=== PATIENT | female | born 2000 | race Caucasian/White ===

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

== ENCOUNTER 2021-01-05 20:47 | Emergency (ER) | payer MEDICAID ==
[2021-01-05] MEDS ORDERED: ONDANSETRON 4 MG/2 ML VIAL IVP STA (21:19)
[2021-01-05] MEDS ORDERED: SODIUM CHLORIDE 0.9% 1,000 ML IV STA (21:19)
[2021-01-05 21:35] VITALS: RESP 18
--- NOTE | 2021-01-05 22:06 | ED ---
General Adult HPI - General Chief complaint: Upper Respiratory Infection Stated complaint: NVD,Fever Time Seen by Provider: 01/05/21 21:16 Source: patient Mode of arrival: ambulatory Limitations: no limitations - History of Present Illness Initial comments: Patient is a 20-year-old female presenting to the emergency department for cold- like symptoms that started this morning. Patient states she was exposed to a family member, she was tested 3 days ago and was negative. Patient states this morning when she woke up she started having a headache, body aches, nausea and vomiting. She has been unable to keep any Tylenol down. She developed low- grade temperature as well. She denies any chest pain or shortness of breath. She denies being although she states there is a chance. She denies any abdominal pain, no diarrhea. She has no further complaints at this time. Upon arrival to the ER, her vitals are stable. - Related Data Previous Rx's Medication Instructions Recorded Ondansetron Odt [Zofran Odt] 4 mg PO Q8HR PRN #10 tab 01/05/21 Allergies Allergy/AdvReac Type Severity Reaction Status Date / Time Penicillins Allergy Rash/Hives Verified 01/05/21 21:47 Review of Systems ROS Statement: Those systems with pertinent positive or pertinent negative responses have been documented in the HPI. ROS Other: All systems not noted in ROS Statement are negative. Past Medical History Past Medical History: No Reported History Additional Past Medical History / Comment(s): autoimmune dermatomyocytis - in remission History of Any Multi-Drug Resistant Organisms: None Reported Past Surgical History: No Surgical Hx Reported Past Psychological History: Anxiety, Bipolar, Depression, Schizoaffective Disorder Smoking Status: Current every day smoker Past Alcohol Use History: None Reported Past Drug Use History: Marijuana General Exam - General Exam Comments Initial Comments: GENERAL: Patient is well-developed and well-nourished. Patient is nontoxic and in no acute distress. HEAD: Atraumatic, normocephalic. EYES: Pupils equal round and reactive to light, extraocular movements intact, sclera anicteric, conjunctiva are normal. Eyelids were unremarkable. ENT: TMs normal, nares patent, oropharynx clear without exudates. Moist mucous mem branes. NECK: Normal range of motion, supple without lymphadenopathy or JVD. LUNGS: Unlabored respirations. Breath sounds clear to auscultation bilaterally and equal. No wheezes rales or rhonchi. HEART: Regular rate and rhythm without murmurs, rubs or gallops. ABDOMEN: Soft, nontender, normoactive bowel sounds. No guarding, no rebound. No masses appreciated. : Deferred MUSCULOSKELETAL: Normal extremities with adequate strength and normal range of motion, no pitting or edema. No clubbing or cyanosis. NEUROLOGICAL: Patient is alert and oriented x 3. Motor and sensory are also intact. Cranial nerves II through XII grossly intact. Symmetrical smile. Normal speech, normal gait. PSYCH: Normal mood, normal affect. SKIN: Warm, Dry, normal turgor, no rashes or lesions noted. Limitations: no limitations Course Vital Signs 01/05/21 01/05/21 20:54 21:32 Temperature 97.9 F Pulse Rate 100 Respiratory 20 18 Rate Blood Pressure 128/90 O2 Sat by Pulse 98 Oximetry Medical Decision Making - Medical Decision Making Patient is a healthy 20-year-old female here for covid like symptoms that started this morning. She states she was exposed about 5 days ago, she had a test 3 days ago which was negative. Her vital signs are stable, her exam was unremarkable. We did check patient for , this was negative. Her rapid covid test is positive. Patient was given some fluids and Zofran and reports improvement in her symptoms. Recommended alternating between Tylenol and Motrin for her symptoms, I will send her home with some Zofran for any additional nausea. Patient is stable for discharge. Patient is in agreement with this plan of care. Return parameters were discussed with the patient and they verbalized understanding. Case discussed with Dr. Pastor. - Lab Data Lab Results 01/05/21 01/05/21 Range/Units 21:26 21:26 Urine HCG, Qual Not Detected (Not Detectd) Coronavirus (PCR) Detected A (Not Detectd) Disposition Clinical Impression: COVID-19, Nausea & vomiting Disposition: HOME SELF-CARE Condition: Stable Instructions (If sedation given, give patient instructions): Coronavirus Disease 2019 (COVID-19) Additional Instructions: Please return to the Emergency Department if symptoms worsen or any other concerns. Alternate between Tylenol and ibuprofen for fever and body aches. May take Zofran for additional nausea. Follow-up with your primary care physician as needed. Prescriptions: Ondansetron Odt [Zofran Odt] 4 mg PO Q8HR PRN #10 tab PRN Reason: Nausea Is patient prescribed a controlled substance at d/c from ED?: No Referrals: Lynette Rivera MD [Primary Care Provider] - 1-2 days Time of Disposition: 22:06
[2021-01-05] MEDS ORDERED: SODIUM CHLORIDE 0.9% 50 ML IVPB ONE (23:00)
[2021-01-05] MEDS ORDERED: BAMLANIVIMAB (EUA) 700 MG, ETESEVIMAB (EUA) 1,400 MG in SODIUM CHLORIDE 0.9% 50 ML IVPB ONE (23:00)
[2021-01-06 01:16] VITALS: BP 103/58; PULSE 73; TEMP 99
== END 2021-01-06 01:15 | disposition home or self-care (01) ==
LOC: EC 20:47
DX: U07.1 COVID-19 (principal); F25.9 Schizoaffective disorder, unspecified; F32.9 Major depressive disorder, single episode, unspecified; F41.9 Anxiety disorder, unspecified; F17.200 Nicotine dependence, unspecified, uncomplicated; F12.90 Cannabis use, unspecified, uncomplicated; Z88.0 Allergy status to penicillin
CPT/HCPCS: 81025; 87635; 99284; 96374; 96361; J2405; Q0245

== ENCOUNTER 2021-05-22 13:06 | Emergency (ER) | payer MEDICAID ==
[2021-05-22 13:19] VITALS: RESP 18; TEMP 98.3
[2021-05-22] MEDS ORDERED: KETOROLAC 15 MG/ML 1 ML VIAL IVP STA (13:54)
--- NOTE | 2021-05-22 13:57 | ED ---
Chest Pain HPI - General Chief Complaint: Chest Pain Stated Complaint: chest Pain Time Seen by Provider: 05/22/21 13:31 Source: patient Mode of arrival: ambulatory Limitations: no limitations - History of Present Illness Initial Comments: Patient is a 21-year-old female who presents to the emergency department reported chest pain, cough and sore throat. She reports that her symptoms have been present for the past day. She denies any sick contacts with similar symptoms. Does have a history of Covid back in January. She is vaccinated. She denies previous history of cardiac disease. No history of sudden cardiac in family members. No lower extremity swelling. No history of DVT or PE. No numbness, tingling or weakness in her extremity. Denies a productive cough. Does have concern for . No other alleviating, precipitating or modifying factors - Related Data Previous Rx's Medication Instructions Recorded Ondansetron Odt [Zofran Odt] 4 mg PO Q8HR PRN #10 tab 01/05/21 Albuterol Inhaler [Ventolin Hfa 2 puff INHALATION RT-QID #1 unit 05/22/21 Inhaler] Allergies Allergy/AdvReac Type Severity Reaction Status Date / Time Penicillins Allergy Rash/Hives Verified 05/22/21 14:52 Review of Systems ROS Statement: Those systems with pertinent positive or pertinent negative responses have been documented in the HPI. ROS Other: All systems not noted in ROS Statement are negative. EKG Findings - EKG Comments: EKG Findings:: EKG demonstrates a sinus rhythm with a ventricular rate of 82. MA interval 130. QRS 26. QTC of 41. No acute ST segment elevations or depressions concerning for ischemic changes Past Medical History Past Medical History: No Reported History Additional Past Medical History / Comment(s): autoimmune dermatomyocytis - in remission History of Any Multi-Drug Resistant Organisms: None Reported Past Surgical History: No Surgical Hx Reported Past Psychological History: Anxiety, Bipolar, Depression, Schizoaffective Disorder Smoking Status: Current every day smoker Past Alcohol Use History: None Reported Past Drug Use History: Marijuana General Exam Limitations: no limitations General appearance: alert, in no apparent distress Head exam: Present: atraumatic, normocephalic, normal inspection Eye exam: Present: normal appearance, PERRL, EOMI. Absent: scleral icterus, conjunctival injection, periorbital swelling ENT exam: Present: normal exam, mucous membranes moist Neck exam: Present: normal inspection. Absent: tenderness, meningismus, lymphadenopathy Respiratory exam: Present: normal lung sounds bilaterally. Absent: respiratory distress, wheezes, rales, rhonchi, stridor Cardiovascular Exam: Present: regular rate, normal rhythm, normal heart sounds. Absent: systolic murmur, diastolic murmur, rubs, gallop, clicks GI/Abdominal exam: Present: soft, normal bowel sounds. Absent: distended, tenderness, guarding, rebound, rigid Extremities exam: Present: normal inspection, full ROM, normal capillary refill. Absent: tenderness, pedal edema, joint swelling, calf tenderness Back exam: Present: normal inspection Neurological exam: Present: alert, oriented X3, CN II-XII intact Psychiatric exam: Present: normal affect, normal mood Skin exam: Present: warm, dry, intact, normal color. Absent: rash Course Vital Signs 05/22/21 05/22/21 13:17 17:25 Temperature 98.3 F Pulse Rate 97 82 Respiratory 18 18 Rate Blood Pressure 124/86 128/78 O2 Sat by Pulse 96 99 Oximetry Chest Pain MDM - MDM Patient has mild leukocytosis. Covid negative. Chest xray clear. Posterior pharyngitis without exudates or erythema. Patient will be discharged to follow up with PCP. Disposition Clinical Impression: Cough, Pharyngitis Disposition: HOME SELF-CARE Condition: Stable Instructions (If sedation given, give patient instructions): Upper Respiratory Infection (ED) Additional Instructions: Please use the inhaler every 4 hours. Take Motrin/Tylenol for pain/fever. Use Mucinex with the inhaler. Follow up with your doctor in 2-4 days. Return to the ED for any new or worsening symptoms. Prescriptions: Albuterol Inhaler [Ventolin Hfa Inhaler] 2 puff INHALATION RT-QID #1 unit Is patient prescribed a controlled substance at d/c from ED?: No Referrals: Lynette Rivera MD [Primary Care Provider] - 1-2 days Time of Disposition: 16:57
--- NOTE | 2021-05-22 14:08 | XR ---
EXAMINATION TYPE: XR chest 2V DATE OF EXAM: 05/22/2021 COMPARISON: 10/14/2020 HISTORY: Chest pain TECHNIQUE: FINDINGS: Heart and mediastinum are normal. Lungs are clear. Diaphragm is normal. Bony thorax appears normal IMPRESSION: Normal chest. No change.
[2021-05-22 15:11] LABS: Basophils # (A) 0.1 k/uL (0-0.2); Basophils % (A) 0 %; Eosinophils # (A) 0.3 k/uL (0-0.7); Eosinophils % (A) 2 %; HCT 43.9 % (34.0-46.0); HGB 15.4 gm/dL (11.4-16.0); Lymphocytes # (A) 2.5 k/uL (1.0-4.8); Lymphocytes % (A) 16 %; MCH 31.6 pg (25.0-35.0); MCV 90.2 fL (80.0-100.0); Monocytes # (A) 0.6 k/uL (0-1.0); Monocytes % (A) 4 %; Neutrophils # (A) 12.3 k/uL (1.3-7.7); Neutrophils % (A) 77 %; Platelet Count 291 k/uL (150-450); RBC 4.87 m/uL (3.80-5.40); RDW 11.7 % (11.5-15.5)
[2021-05-22 15:22] LABS: ALT 34 U/L (4-34); AST 24 U/L (14-36); African American GFR (CKD) >90 (>60 ml/min/1.73 sqM); Albumin 4.4 g/dL (3.5-5.0); Alkaline Phosphatase 85 U/L (38-126); Anion Gap 9 mmol/L; Blood Urea Nitrogen 13 mg/dL (7-17); Calcium 9.6 mg/dL (8.4-10.2); Carbon Dioxide 21 mmol/L (22-30); Chloride 105 mmol/L (98-107); Glucose 91 mg/dL (74-99); Non-African American GFR(CKD) >90 (>60 ml/min/1.73 sqM); Potassium 4.2 mmol/L (3.5-5.1); Sodium 135 mmol/L (137-145); Total Bilirubin 0.9 mg/dL (0.2-1.3); Total Protein 7.3 g/dL (6.3-8.2)
[2021-05-22 15:24] LABS: INR 0.9 (<1.2); Partial Thromboplastin Time 23.2 sec (22.0-30.0); Prothrombin Time 10.1 sec (9.0-12.0)
[2021-05-22] MEDS ORDERED: DEXAMETHASONE SOD PHOSPHATE 10 MG/ML 1 ML VIAL IV STA (16:49)
[2021-05-22 17:28] VITALS: BP 128/78; PULSE 82
== END 2021-05-22 17:28 | disposition home or self-care (01) ==
LOC: EC 13:06
DX: J02.9 Acute pharyngitis, unspecified (principal); D72.829 Elevated white blood cell count, unspecified; F17.200 Nicotine dependence, unspecified, uncomplicated; Z88.0 Allergy status to penicillin; Z86.16 Personal history of COVID-19; Z20.822 Contact with and (suspected) exposure to COVID-19
CPT/HCPCS: 36415; 93005; 85379; 80053; 83735; 84484; 85025; 85610; 85730; 81025; 87635; 71046; 99285; 96374; 96375; J1100; J1885

== ENCOUNTER 2021-08-24 19:16 | Emergency (ER) | payer BC ==
[2021-08-24] MEDS ORDERED: KETOROLAC 15 MG/ML 1 ML VIAL IM STA (23:05)
[2021-08-24] MEDS ORDERED: ACETAMINOPHEN TAB 500 MG TAB PO STA (23:05)
[2021-08-24] MEDS ORDERED: ONDANSETRON 4 MG ODT STARTER PACK 2 TAB BTL PO STA (23:06)
--- NOTE | 2021-08-24 23:08 | ED ---
URI HPI - General Chief Complaint: Upper Respiratory Infection Stated Complaint: Headache,chest pain Source: patient Mode of arrival: ambulatory Limitations: no limitations - History of Present Illness Initial Comments: 21 year-old female patient presents for evaluation of cough, congestion, body aches, and fever. Symptoms started yesterday. States she did have COVID three weeks ago. Symptoms feel similar. She denies any shortness of breath or chest pain. She did have one episode of vomiting. Denies abdominal pain. States she took ibuprofen earlier in the day. Denies diarrhea. Denies sick contacts. - Related Data Previous Rx's Medication Instructions Recorded Ondansetron Odt [Zofran Odt] 4 mg PO Q8HR PRN #10 tab 01/05/21 Albuterol Inhaler [Ventolin Hfa 2 puff INHALATION RT-QID #1 unit 05/22/21 Inhaler] Ibuprofen [Motrin] 600 mg PO Q8HR PRN #30 tab 08/24/21 Ondansetron [Zofran ODT] 4 mg PO Q8HR PRN #10 tab 08/24/21 Allergies Allergy/AdvReac Type Severity Reaction Status Date / Time Penicillins Allergy Rash/Hives Verified 08/24/21 23:07 Review of Systems ROS Statement: Those systems with pertinent positive or pertinent negative responses have been documented in the HPI. ROS Other: All systems not noted in ROS Statement are negative. Past Medical History Past Medical History: No Reported History Additional Past Medical History / Comment(s): autoimmune dermatomyocytis - in remission, PCOS, COVID JANUARY 2021 History of Any Multi-Drug Resistant Organisms: None Reported Past Surgical History: No Surgical Hx Reported Past Psychological History: Anxiety, Bipolar, Depression, Schizoaffective Disorder Smoking Status: Current every day smoker Past Alcohol Use History: None Reported Past Drug Use History: Marijuana General Exam Limitations: no limitations General appearance: alert, in no apparent distress, other (This is a well- developed, well-nourished adult female in no acute distress.) ENT exam: Present: normal exam, mucous membranes moist, TM's normal bilaterally. Absent: normal oropharynx (Mild pharyngeal erythema) Respiratory exam: Present: normal lung sounds bilaterally. Absent: respiratory distress, wheezes, rales, rhonchi, stridor Cardiovascular Exam: Present: regular rate, normal rhythm, tachycardia, normal heart sounds. Absent: systolic murmur, diastolic murmur, rubs, gallop, clicks GI/Abdominal exam: Present: soft, normal bowel sounds. Absent: distended, tenderness, guarding, rebound, rigid Neurological exam: Present: alert, oriented X3, CN II-XII intact Psychiatric exam: Present: normal affect, normal mood Skin exam: Present: warm, dry, intact, normal color. Absent: rash Course Vital Signs 08/24/21 08/24/21 08/25/21 19:32 22:29 00:00 Temperature 100.5 F H 98.2 F Pulse Rate 118 H 65 Respiratory 20 20 19 Rate Blood Pressure 131/87 124/83 O2 Sat by Pulse 97 96 Oximetry Medical Decision Making - Medical Decision Making 21-year-old female patient presents to the emergency department today for upper respiratory symptoms fever. Physical examination did reveal clear equal lung sounds. She is breathing without difficulty. Abdomen is soft and nontender. She did test negative for COVID-19 influenza. She is given Zofran, Tylenol, and Toradol. She'll be discharged to follow up with her primary care physician for recheck in 1-2 days. Return parameters were discussed in detail. She verbalizes understanding and agrees with this plan. My attending is Dr. Garcia. - Lab Data Lab Results 08/24/21 08/24/21 Range/Units 19:38 19:38 Coronavirus (PCR) Not Detected (Not Detectd) Influenza Type A RNA Not Detected (Not Detectd) Influenza Type B (PCR) Not Detected (Not Detectd) Disposition Clinical Impression: Viral upper respiratory infection Disposition: HOME SELF-CARE Condition: Good Instructions (If sedation given, give patient instructions): Upper Respiratory Infection (ED) Additional Instructions: Tips to help you feel better: -Maintain adequate fluid intake - especially water. -Rest, you are healing your body will require extra sleep. -Eat even if you do not feel like it - broth, jello, toast are fine if you cannot eat full meals. -Take tylenol and motrin alternating (if you have no allergies or have not been instructed to avoid these medications) to help with body aches and fevers. -Obtain over the counter vitamin C, zinc, and vitamin D3. -Take medications as prescribed. Follow-up with your primary care physician for recheck in 1-2 days. Return for any new, worsening, or concerning symptoms. Prescriptions: Ibuprofen [Motrin] 600 mg PO Q8HR PRN #30 tab PRN Reason: Pain Ondansetron [Zofran ODT] 4 mg PO Q8HR PRN #10 tab PRN Reason: Nausea Is patient prescribed a controlled substance at d/c from ED?: No Referrals: Remington Chandra MD [Primary Care Provider] - 1-2 days Time of Disposition: 23:08
[2021-08-25 00:01] VITALS: BP 124/83; PULSE 65; RESP 19; TEMP 98.2
== END 2021-08-24 23:59 | disposition home or self-care (01) ==
LOC: EC 19:16
DX: J06.9 Acute upper respiratory infection, unspecified (principal); F17.200 Nicotine dependence, unspecified, uncomplicated; Z86.16 Personal history of COVID-19; Z20.822 Contact with and (suspected) exposure to COVID-19; Z88.0 Allergy status to penicillin
CPT/HCPCS: 87502; 87635; 96372; 99284; U0003; J1885; S0119

== ENCOUNTER 2021-08-27 09:40 | Emergency (ER) | payer SELFPAY ==
[2021-08-27 09:46] VITALS: TEMP 97.5
--- NOTE | 2021-08-27 09:57 | ED ---
URI HPI - General Chief Complaint: Upper Respiratory Infection Stated Complaint: Covid+/Wants antibodies Time Seen by Provider: 08/27/21 09:46 Source: patient Mode of arrival: ambulatory Limitations: no limitations - History of Present Illness Initial Comments: 21 year-old female patient presents to the emergency department requesting antibody infusion. States she tested positive for COVID on 08/24/21, starting having symptoms on 08/23/21. States she has been having cough, nasal congestion, chest discomfort, fever, body aches, and nausea. States she is not feeling any better. She has been able to hold down food and fluids. States she has been taking zofran and tylenol. She did have COVID in January, had antibodies at that time. - Related Data Previous Rx's Medication Instructions Recorded Ondansetron Odt [Zofran Odt] 4 mg PO Q8HR PRN #10 tab 01/05/21 Albuterol Inhaler [Ventolin Hfa 2 puff INHALATION RT-QID #1 unit 05/22/21 Inhaler] Ibuprofen [Motrin] 600 mg PO Q8HR PRN #30 tab 08/24/21 Ondansetron [Zofran ODT] 4 mg PO Q8HR PRN #10 tab 08/24/21 Allergies Allergy/AdvReac Type Severity Reaction Status Date / Time Penicillins Allergy Rash/Hives Verified 08/27/21 09:46 Review of Systems ROS Statement: Those systems with pertinent positive or pertinent negative responses have been documented in the HPI. ROS Other: All systems not noted in ROS Statement are negative. Past Medical History Past Medical History: No Reported History Additional Past Medical History / Comment(s): autoimmune dermatomyocytis - in remission, PCOS, COVID JANUARY 2021 History of Any Multi-Drug Resistant Organisms: None Reported Past Surgical History: No Surgical Hx Reported Past Psychological History: Anxiety, Bipolar, Depression, Schizoaffective Disorder Smoking Status: Current every day smoker Past Alcohol Use History: None Reported Past Drug Use History: Marijuana General Exam Limitations: no limitations General appearance: alert, in no apparent distress, other (This is a well- developed, well-nourished adult female in no acute distress.) Eye exam: Present: normal appearance, PERRL, EOMI. Absent: scleral icterus, conjunctival injection, periorbital swelling ENT exam: Present: normal exam, normal oropharynx, mucous membranes moist Respiratory exam: Present: normal lung sounds bilaterally. Absent: respiratory distress, wheezes, rales, rhonchi, stridor Cardiovascular Exam: Present: regular rate, normal rhythm, normal heart sounds. Absent: systolic murmur, diastolic murmur, rubs, gallop, clicks GI/Abdominal exam: Present: soft, normal bowel sounds. Absent: distended, tenderness, guarding, rebound, rigid Neurological exam: Present: alert, oriented X3, CN II-XII intact Psychiatric exam: Present: normal affect, normal mood Skin exam: Present: warm, dry, intact, normal color. Absent: rash Course Vital Signs 08/27/21 08/27/21 08/27/21 09:41 10:46 11:04 Temperature 97.5 F L Pulse Rate 78 64 64 Respiratory 16 18 18 Rate Blood Pressure 123/86 91/69 96/68 O2 Sat by Pulse 98 97 98 Oximetry 08/27/21 08/27/21 11:26 13:05 Temperature 97.5 F L Pulse Rate 65 59 L Respiratory 18 18 Rate Blood Pressure 109/81 108/74 O2 Sat by Pulse 98 98 Oximetry Medical Decision Making - Medical Decision Making 21-year-old female patient presenting for monoclonal antibody infusion after testing positive for COVID-19. Physical examination is unremarkable. Lungs are clear to auscultation with good air movement. Vital signs are unremarkable. She did receive antibody infusion and tolerated without difficulty. She'll be discharged follow-up with her primary care physician for recheck in 1-2 days. Return parameters were discussed in detail. She verbalizes understanding and agrees with this plan. My attending is Dr. Sarmiento. Disposition Clinical Impression: COVID-19 Disposition: HOME SELF-CARE Condition: Good Instructions (If sedation given, give patient instructions): Coronavirus Disease 2019 (COVID-19) Additional Instructions: Tips to help you feel better: -Maintain adequate fluid intake - especially water. -Rest, you are healing your body will require extra sleep. -Eat even if you do not feel like it - broth, jello, toast are fine if you cannot eat full meals. -Take tylenol and motrin alternating (if you have no allergies or have not been instructed to avoid these medications) to help with body aches and fevers. -Obtain over the counter vitamin C, zinc, and vitamin D3. -Take medications as prescribed. DO NOT use Afrin spray for more than three days in a row. Follow-up with your primary care physician for recheck in 1-2 days. Return for any new, worsening, or concerning symptoms. Is patient prescribed a controlled substance at d/c from ED?: No Referrals: Remington Chandra MD [Primary Care Provider] - 1-2 days Time of Disposition: 12:15
[2021-08-27] MEDS: SODIUM CHLORIDE 0.9% 1,000 ML IV ONE (10:05)
[2021-08-27] MEDS: KETOROLAC 15 MG/ML 1 ML VIAL IVP STA (10:05)
[2021-08-27] MEDS: ONDANSETRON 4 MG/2 ML VIAL IVP STA (10:05)
[2021-08-27] MEDS: BAMLANIVIMAB (EUA) 700 MG, ETESEVIMAB (EUA) 1,400 MG in SODIUM CHLORIDE 0.9% 100 ML IVPB ONE (10:35)
[2021-08-27 10:47] VITALS: RESP 18
[2021-08-27] MEDS: SODIUM CHLORIDE 0.9% 50 ML IVPB ONE (11:15)
[2021-08-27] MEDS: OXYMETAZOLINE 0.05% NASL SPRAY 1 SPRAY BOTTLE NASAL STA (12:02)
[2021-08-27 13:05] VITALS: BP 108/74; PULSE 59
== END 2021-08-27 12:30 | disposition home or self-care (01) ==
LOC: EC 09:40
DX: U07.1 COVID-19 (principal); F41.9 Anxiety disorder, unspecified; F31.9 Bipolar disorder, unspecified; F25.9 Schizoaffective disorder, unspecified; F17.200 Nicotine dependence, unspecified, uncomplicated; F12.90 Cannabis use, unspecified, uncomplicated
CPT/HCPCS: 99284; 96374; 96375; 96361; J2405; J1885; J3490

== ENCOUNTER 2022-12-26 15:12 | Emergency (ER) | payer OTHER ==
[2022-12-26 15:15] VITALS: TEMP 98.4
--- NOTE | 2022-12-26 16:38 | ED ---
Recheck HPI - General Chief Complaint: Recheck/Abnormal Lab/Rx Stated Complaint: Pelvic Pain Time Seen by Provider: 12/26/22 15:38 Source: patient, RN notes reviewed, old records reviewed Mode of arrival: ambulatory Limitations: no limitations - History of Present Illness Initial Comments: This is a 22-year-old female DF for evaluation she presents today for evaluation of abnormal outpatient testing severe abdominal pain with history of PCO S history of systems history of ruptured cysts. Patient coming in for severe and worse abdominal pain that she's never had before. Patient states she has nausea no active vomiting. Patient has no trauma no vaginal bleeding denies chance of . S MD Complaint: other (abNormal patient ultrasound) Returns Today for: persistent/worsening pain related to initial visit Symptoms Since Prior Visit: worsening pain Associated Symptoms: none Treatments Prior to Arrival: Given Pain Meds on - Related Data Home Medications Medication Instructions Recorded Confirmed Ondansetron Odt [Zofran Odt] 4 mg PO Q8H PRN 12/26/22 12/26/22 Semaglutide [Wegovy] 0.5 mg SQ SA 12/26/22 12/26/22 Allergies Allergy/AdvReac Type Severity Reaction Status Date / Time Penicillins Allergy Rash/Hives Verified 12/26/22 17:46 hydromorphone [From Dilaudid] AdvReac Nausea & Verified 12/26/22 17:46 Vomiting Review of Systems ROS Statement: Those systems with pertinent positive or pertinent negative responses have been documented in the HPI. ROS Other: All systems not noted in ROS Statement are negative. Past Medical History Past Medical History: No Reported History Additional Past Medical History / Comment(s): autoimmune dermatomyocytis - in remission, PCOS, COVID JANUARY 2021 History of Any Multi-Drug Resistant Organisms: None Reported Past Surgical History: No Surgical Hx Reported Past Psychological History: Anxiety, Bipolar, Depression, Schizoaffective Disorder Smoking Status: Current every day smoker Past Alcohol Use History: None Reported Past Drug Use History: Marijuana General Exam Limitations: no limitations General appearance: alert, in no apparent distress, anxious Head exam: Present: atraumatic, normocephalic, normal inspection Eye exam: Present: normal appearance, PERRL, EOMI. Absent: scleral icterus, conjunctival injection, periorbital swelling ENT exam: Present: normal exam, mucous membranes moist Neck exam: Present: normal inspection. Absent: tenderness, meningismus, lymphadenopathy Respiratory exam: Present: normal lung sounds bilaterally. Absent: respiratory distress, wheezes, rales, rhonchi, stridor Cardiovascular Exam: Present: normal rhythm, tachycardia, normal heart sounds. Absent: systolic murmur, diastolic murmur, rubs, gallop, clicks GI/Abdominal exam: Present: soft, tenderness, guarding, normal bowel sounds. Absent: distended, rebound, rigid Extremities exam: Present: normal inspection, full ROM, normal capillary refill. Absent: tenderness, pedal edema, joint swelling, calf tenderness Back exam: Present: normal inspection Neurological exam: Present: alert, oriented X3, CN II-XII intact Psychiatric exam: Present: normal affect, normal mood Skin exam: Present: warm, dry, intact, normal color. Absent: rash Course Vital Signs 12/26/22 12/26/22 15:13 17:50 Temperature 98.4 F Pulse Rate 106 H 97 Respiratory 18 16 Rate Blood Pressure 128/92 136/93 O2 Sat by Pulse 100 100 Oximetry - Reevaluation(s) Reevaluation #1: 12/26/22 18:34 Medical records reviewed Reevaluation #2: 12/26/22 18:34 Patient's pain is improved here in the ER Reevaluation #3: 12/26/22 18:34 Patient informed results questions answered Reevaluation #4: 12/26/22 18:35 Was pt. sent in by a medical professional or institution? @ -yes patients of Dr helms and outpatient US Did you speak to anyone other than the patient for history? @ -no Did you review nursing and triage notes? @ -agree Were old charts reviewed? @ -no Differential Diagnosis? @ -abdominal pain EKG interpreted by me (3pts min.)? @ -no X-rays interpreted by me (1pt min.)? @ -no CT interpreted by me (1pt min.)? @ -no U/S interpreted by me (1pt. min.)? @ -no What testing was considered but not performed? (CT, X-rays, U/S, labs)? Why? @ -no What meds were considered but not given? Why? @ -no Did you discuss the management of the patient with other professionals? @ -no Did you reconcile home meds? @ -yes Was smoking cessation discussed for >3mins.? @ -no Was critical care preformed (if so, how long)? @ -no Were there social determinants of health that impacted care today? How? (Homelessness, low income, unemployed, alcoholism, drug addiction, transportation, low edu. Level, literacy, decrease access to med. care, senior living, rehab)? @ -no Was there de-escalation of care discussed even if they declined? (Discuss DNR or withdrawal of care, Hospice)? @ -no What co-morbidities impacted this encounter? (DM, HTN, Smoking, COPD, CAD, Cancer, CVA,, sleep apnea, morbid obesity) @ -no Was patient admitted / discharged? @ -dc Undiagnosed new problem with uncertain prognosis? @ -no Drug Therapy requiring intensive monitoring for toxicity (Heparin, Nitro, Insul in, Cardizem)? @ -no Were any procedures done? @ -no Diagnosis/symptom? @ -ruptured ovarian cyst Acute, or Chronic, or Acute on Chronic? @ -acute Uncomplicated (without systemic symptoms) or Complicated (systemic symptoms)? @ -uncomplicated Side effects of treatment? @ -no Exacerbation, Progression, or Severe Exacerbation] @ -exacerbation and severe Poses a threat to life or bodily function? @ -no Reevaluation #5: 12/26/22 18:34 Differential Abdominal Pain Women: Appendicitis, Cholecystitis, diverticulosis, ischemic bowel, pancreatitis, h epatitis, UTI, gastroenteritis, AAA, incarcerated hernia, bowel obstruction, constipation, inflammatory bowel, hepatitis, peptic ulcer disease, splenic infarction, perforated viscus, vulvitis, ovarian torsion, PID, kidney stone, placenta abruption, this is not meant to be an all-inclusive list Medical Decision Making - Medical Decision Making 22 female to the emergency department for evaluation of abdominal pain severe - Lab Data Result diagrams: 12/26/22 18:27 12/26/22 18:27 Lab Results 12/26/22 12/26/22 12/26/22 Range/Units 16:43 16:43 18:27 WBC 12.5 H (3.8-10.6) k/uL RBC 4.70 (3.80-5.40) m/uL Hgb 14.0 (11.4-16.0) gm/dL Hct 41.7 (34.0-46.0) % MCV 88.7 (80.0-100.0) fL MCH 29.8 (25.0-35.0) pg MCHC 33.6 (31.0-37.0) g/dL RDW 12.1 (11.5-15.5) % Plt Count 306 (150-450) k/uL MPV 7.4 Neutrophils % 63 % Lymphocytes % 28 % Monocytes % 5 % Eosinophils % 2 % Basophils % 1 % Neutrophils # 7.9 H (1.3-7.7) k/uL Lymphocytes # 3.5 (1.0-4.8) k/uL Monocytes # 0.6 (0-1.0) k/uL Eosinophils # 0.2 (0-0.7) k/uL Basophils # 0.1 (0-0.2) k/uL PT (9.0-12.0) sec INR (<1.2) APTT (22.0-30.0) sec Sodium (137-145) mmol/L Potassium (3.5-5.1) mmol/L Chloride (98-107) mmol/L Carbon Dioxide (22-30) mmol/L Anion Gap mmol/L BUN (7-17) mg/dL Creatinine (0.52-1.04) mg/dL Est GFR (CKD-EPI)AfAm (>60 ml/min/1.73 sqM) Est GFR (CKD-EPI)NonAf (>60 ml/min/1.73 sqM) Glucose (74-99) mg/dL Plasma Lactic Acid Herbert (0.7-2.0) mmol/L Calcium (8.4-10.2) mg/dL Total Bilirubin (0.2-1.3) mg/dL AST (14-36) U/L ALT (4-34) U/L Alkaline Phosphatase (38-126) U/L Total Protein (6.3-8.2) g/dL Albumin (3.5-5.0) g/dL Amylase (30-110) U/L Lipase (23-300) U/L Urine Color Yellow Urine Appearance Cloudy H (Clear) Urine pH 6.0 (5.0-8.0) Ur Specific Rentz 1.030 (1.001-1.035) Urine Protein 1+ H (Negative) Urine Glucose (UA) Negative (Negative) Urine Ketones 4+ H (Negative) Urine Blood Negative (Negative) Urine Nitrite Negative (Negative) Urine Bilirubin Negative (Negative) Urine Urobilinogen <2.0 (<2.0) mg/dL Ur Leukocyte Esterase Moderate H (Negative) Urine WBC 9 H (0-5) /hpf Ur Squamous Epith Cells 2 (0-4) /hpf Urine Bacteria Rare H (None) /hpf Urine Mucus Many H (None) /hpf Urine HCG, Qual Not Detected (Not Detectd) 12/26/22 12/26/22 12/26/22 Range/Units 18:27 18:27 18:27 WBC (3.8-10.6) k/uL RBC (3.80-5.40) m/uL Hgb (11.4-16.0) gm/dL Hct (34.0-46.0) % MCV (80.0-100.0) fL MCH (25.0-35.0) pg MCHC (31.0-37.0) g/dL RDW (11.5-15.5) % Plt Count (150-450) k/uL MPV Neutrophils % % Lymphocytes % % Monocytes % % Eosinophils % % Basophils % % Neutrophils # (1.3-7.7) k/uL Lymphocytes # (1.0-4.8) k/uL Monocytes # (0-1.0) k/uL Eosinophils # (0-0.7) k/uL Basophils # (0-0.2) k/uL PT 10.4 (9.0-12.0) sec INR 1.0 (<1.2) APTT 24.6 (22.0-30.0) sec Sodium 140 (137-145) mmol/L Potassium 3.8 (3.5-5.1) mmol/L Chloride 105 (98-107) mmol/L Carbon Dioxide 25 (22-30) mmol/L Anion Gap 10 mmol/L BUN 13 (7-17) mg/dL Creatinine 0.56 (0.52-1.04) mg/dL Est GFR (CKD-EPI)AfAm >90 (>60 ml/min/1.73 sqM) Est GFR (CKD-EPI)NonAf >90 (>60 ml/min/1.73 sqM) Glucose 81 (74-99) mg/dL Plasma Lactic Acid Herbert 0.8 (0.7-2.0) mmol/L Calcium 9.2 (8.4-10.2) mg/dL Total Bilirubin 1.0 (0.2-1.3) mg/dL AST 21 (14-36) U/L ALT 26 (4-34) U/L Alkaline Phosphatase 58 (38-126) U/L Total Protein 7.7 (6.3-8.2) g/dL Albumin 4.5 (3.5-5.0) g/dL Amylase 45 (30-110) U/L Lipase 115 (23-300) U/L Urine Color Urine Appearance (Clear) Urine pH (5.0-8.0) Ur Specific Rentz (1.001-1.035) Urine Protein (Negative) Urine Glucose (UA) (Negative) Urine Ketones (Negative) Urine Blood (Negative) Urine Nitrite (Negative) Urine Bilirubin (Negative) Urine Urobilinogen (<2.0) mg/dL Ur Leukocyte Esterase (Negative) Urine WBC (0-5) /hpf Ur Squamous Epith Cells (0-4) /hpf Urine Bacteria (None) /hpf Urine Mucus (None) /hpf Urine HCG, Qual (Not Detectd) Disposition Clinical Impression: Ruptured ovarian cyst Disposition: HOME SELF-CARE Condition: Good Instructions (If sedation given, give patient instructions): Ruptured Ovarian Cyst (ED) Is patient prescribed a controlled substance at d/c from ED?: No Referrals: Remington Chandra MD [Primary Care Provider] - 1-2 days Mariluz Patrick DO [Doctor of Osteopathic Medicine] - 1-2 days Time of Disposition: 20:00
[2022-12-26 16:57] LABS: Appearance,Urine Cloudy (Clear); Bacteria,Urine Rare /hpf; Bilirubin,Urine Negative (Negative); Blood,Urine Negative (Negative); Color,Urine Yellow; Glucose,Urine (UA) Negative (Negative); Ketones,Urine 4+ (Negative); Leukocyte Esterase,Urine Moderate (Negative); Mucus,Urine Many /hpf; Nitrite,Urine Negative (Negative); Protein,Urine 1+ (Negative); Squamous Epithelial Cell,Urine 2 /hpf (0-4); Urobilinogen,Urine <2.0 mg/dL (<2.0); WBC,Urine 9 /hpf (0-5)
[2022-12-26 17:51] VITALS: RESP 16
[2022-12-26] MEDS ORDERED: ONDANSETRON 4 MG/2 ML VIAL IVP STA ×2 (18:16→19:49)
[2022-12-26] MEDS ORDERED: SODIUM CHLORIDE 0.9% 1,000 ML IV STA (18:16)
[2022-12-26] MEDS ORDERED: MORPHINE SULFATE 4 MG/ML SYRINGE IVP STA ×2 (18:17→19:49)
[2022-12-26 18:51] LABS: Basophils # (A) 0.1 k/uL (0-0.2); Basophils % (A) 1 %; Eosinophils # (A) 0.2 k/uL (0-0.7); Eosinophils % (A) 2 %; HCT 41.7 % (34.0-46.0); Lymphocytes # (A) 3.5 k/uL (1.0-4.8); Lymphocytes % (A) 28 %; MCH 29.8 pg (25.0-35.0); MCHC 33.6 g/dL (31.0-37.0); MCV 88.7 fL (80.0-100.0); Mean Platelet Volume 7.4; Monocytes # (A) 0.6 k/uL (0-1.0); Monocytes % (A) 5 %; Neutrophils # (A) 7.9 k/uL (1.3-7.7); Neutrophils % (A) 63 %; Platelet Count 306 k/uL (150-450); RDW 12.1 % (11.5-15.5); WBC 12.5 k/uL (3.8-10.6)
[2022-12-26 19:14] LABS: ALT 26 U/L (4-34); AST 21 U/L (14-36); African American GFR (CKD) >90 (>60 ml/min/1.73 sqM); Albumin 4.5 g/dL (3.5-5.0); Alkaline Phosphatase 58 U/L (38-126); Amylase 45 U/L (30-110); Anion Gap 10 mmol/L; Blood Urea Nitrogen 13 mg/dL (7-17); Calcium 9.2 mg/dL (8.4-10.2); Carbon Dioxide 25 mmol/L (22-30); Chloride 105 mmol/L (98-107); Glucose 81 mg/dL (74-99); Lipase 115 U/L (23-300); Non-African American GFR(CKD) >90 (>60 ml/min/1.73 sqM); Potassium 3.8 mmol/L (3.5-5.1); Sodium 140 mmol/L (137-145); Total Protein 7.7 g/dL (6.3-8.2)
--- NOTE | 2022-12-26 19:15 | CT ---
EXAMINATION TYPE: CT abdomen pelvis w con CT DLP: 1342.9 mGycm, Automated exposure control for dose reduction was used. DATE OF EXAM: 12/26/2022 6:55 PM COMPARISON: None. CLINICAL INDICATION:Female, 22 years old with history of abdominal pain; epigastric and pelvic pain TECHNIQUE: Axial CT of the abdomen and pelvis. Sagittal and coronal reformats were created on a [employer] workstation. Contrast used:100 mL of Isovue 300 with IV Contrast, Oral contrast used: without Oral Contrast FINDINGS: LOWER CHEST: Unremarkable ABDOMEN LIVER: Unremarkable GALLBLADDER AND BILE DUCTS: Unremarkable. PANCREAS: Unremarkable. SPLEEN: Unremarkable. ADRENAL GLANDS: Unremarkable. KIDNEYS AND URETERS: No evidence of hydronephrosis or renal calculus. The ureters are unremarkable. PELVIS BLADDER: Unremarkable REPRODUCTIVE: Hyperemic ovarian cysts are seen on the left measuring up to 3.9 and 1.1 cm. ABDOMEN & PELVIS STOMACH AND BOWEL: No evidence of bowel obstruction. PERITONEUM/RETROPERITONEUM: High-density fluid is seen within the pelvis measuring up to 30 Hounsfiel d units. VASCULATURE: No evidence of aortic aneurysm. MUSCULOSKELETAL: No acute osseous abnormalities LYMPH NODES: No gross evidence for lymphadenopathy. SOFT TISSUE/ABDOMINAL WALL: Unremarkable IMPRESSION: High density blood layering within the pelvis in the setting of a absent test this is favor ed represent ruptured hemorrhagic ovarian cyst. Findings communicated to Dr. Joaquin Garcia DO on 12/26/2022 7:[address] Holland Croft.
[2022-12-26 19:16] LABS: Prothrombin Time 10.4 sec (9.0-12.0)
[2022-12-26 19:17] LABS: Partial Thromboplastin Time 24.6 sec (22.0-30.0)
[2022-12-26] MEDS ORDERED: diphenhydrAMINE 50 MG/ML 1 ML VIAL IVP STA (19:49)
[2022-12-26] MEDS ORDERED: ONDANSETRON 4 MG ODT STARTER PACK 2 TAB BTL PO STA (19:58)
[2022-12-26] MEDS ORDERED: ACET/COD 300 MG/30 MG STARTER PACK 6 TAB BTL PO STA (19:58)
[2022-12-26] MEDS ORDERED: IBUPROFEN 600 MG STARTER PACK 4 TAB BTL PO STA (19:58)
[2022-12-26 20:14] VITALS: BP 112/67; PULSE 82
== END 2022-12-26 20:25 | disposition home or self-care (01) ==
LOC: EC 15:12
DX: N83.202 Unspecified ovarian cyst, left side (principal); F17.200 Nicotine dependence, unspecified, uncomplicated; F12.90 Cannabis use, unspecified, uncomplicated; Z88.0 Allergy status to penicillin; Z88.5 Allergy status to narcotic agent; Z86.16 Personal history of COVID-19
CPT/HCPCS: 36415; 80053; 82150; 83605; 83690; 85025; 85610; 85730; 81001; 81025; 74177; 99284; 96374; 96375 ×2; 96376 ×2; 96361; J2270; J1200; J2405; S0119; Q9967

== ENCOUNTER → 2022-12-26 | Outpatient (CLI) | payer OTHER ==
--- NOTE | 2022-12-26 15:24 | US ---
EXAMINATION TYPE: US transvaginal DATE OF EXAM: 12/26/2022 COMPARISON: NONE CLINICAL INDICATION: Female, 22 years old with history of E28.2 PCOS R10.2 Female pelvic pain; right sided pain after intercourse yesterday, PCOS, A1 TECHNIQUE: TV. Transvaginal sonographic images Date of LMP: this month, unknown dates, irregular cycles due to PCOS EXAM MEASUREMENTS: Uterus: 8.0 x 4.5 x 3.2 cm Endometrial Stripe: 1.0 cm Right Ovary: 3.2 x 3.9 x 3.2 cm Left Ovary: 5.8 x 5.2 x 4.1 cm 1. Uterus: Anteverted wnl 2. Endometrium: wnl 3. Right Ovary: multiple small follicles seen 4. Left Ovary: heterogeneous appearance and enlarged Spectral, color and waveform doppler imaging shows good arterial and venous flow within the ovaries ; there is no evidence for ovarian torsion. 5. Bilateral Adnexa: internal echoes within free fluid may represent blood 6. Posterior cul-de-sac: echogenic debris may represent blood clots spoke with , patient will go to ER IMPRESSION: 1. Probable hemorrhagic fluid. 2. Left ovarian enlargement with heterogenous appearance. Correlate for possible ruptured cyst.
== END | disposition home or self-care (01) ==
LOC: RADUSWWP 14:28
PROVIDERS: ATTEND Family Medicine
DX: E28.2 Polycystic ovarian syndrome (principal); R10.2 Pelvic and perineal pain
CPT/HCPCS: 76830; 93975

== ENCOUNTER → 2023-02-28 | Outpatient (CLI) | payer OTHER ==
--- NOTE | 2023-02-28 22:36 | MR ---
EXAMINATION TYPE: MR pelvis wo/w con DATE OF EXAM: 02/28/2023 COMPARISON: CT 12/26/2022 HISTORY: Pelvic mass CONTRAST: Standard multiplanar, multisequence MRI departmental protocol images were obtained without contrast a nd with 9 mL intravenous Gadavist gadolinium contrast. FINDINGS: Uterus is anteflexed and measures approximately 5.7 x 3.3 x 3.8 cm. The endometrium is within normal limits at 7 mm. I do not see evidence for uterine mass at this time. No evidence of pathologic enhanc ement. The right ovary measures 3.8 x 2.3 cm. Multiple small follicles are noted. There is no evidence of so lid mass. The left ovary measures 3.2 x 3.0 cm. Multiple follicles are noted. No evidence for solid mass. No evidence for free fluid. Urinary bladder is grossly unremarkable. Pelvic adenopathy. Visualized ga strointestinal tract is unremarkable. IMPRESSION: 1. No evidence for pelvic mass. 2. Multiple small ovarian follicles are seen bilaterally. Correlate for Polycystic ovarian disease.
== END | disposition home or self-care (01) ==
LOC: RADMRIMAIN 14:48
PROVIDERS: ATTEND Family Medicine
DX: N83.01 Follicular cyst of right ovary (principal); N83.02 Follicular cyst of left ovary; R19.00 Intra-abdominal and pelvic swelling, mass and lump, unspecified site
CPT/HCPCS: 72197; A9585

== ENCOUNTER 2023-09-26 09:20 | Outpatient (CLI) | payer OTHER ==
[2023-09-26 11:36] VITALS: BP 116/73; PULSE 100; RESP 16; TEMP 97.9
--- NOTE | 2023-09-26 18:04 | P.MSEPDOC ---
Presenting Problems - Arrival Data Date of Arrival on Unit: 09/26/23 Time of Arrival on Unit: 09:20 Mode of Transport: Ambulatory - Complaint OB-Reason for Admission/Chief Complaint: Decreased Movement Comment: pt presents c/o not feeling baby move since 9pm last night despite eating chocolate cake for breakfast Medical History - Information : 1 Para: 0 Term: 0 : 0 Abortions: Spontaneous or Elective: 0 Number of Living Children: 0 - Gestational Age Gestational Age by BELGICA (wks/days): 31 Weeks and 5 Days Review of Systems - Review of Systems Constitutional: No problems Breast: No problems ENT: No problems Cardiovascular: No problems Respiratory: No problems Gastrointestinal: No problems Genitourinary: No problems Musculoskeletal: No problems Neurological: No problems Skin: No problems Vital Signs - Temperature Temperature: 97.9 F Temperature Source: Oral - Pulse Right Pulse Rate: 100 Pulse Assessment Method: Automatic Cuff - Respirations Respiratory Rate: 16 Oxygen Delivery Method: Room Air O2 Sat by Pulse Oximetry: 97 - Blood Pressure Right Arm Blood Pressure: 116/73 Blood Pressure Mean: 87 Blood Pressure Source: Automatic Cuff Physician Notification - Physician Notified Physician Notified Date: 09/26/23 Physician Notified Time: 10:20 Physician: Ange Alejandro Maternal Triage Index - Stat/Priority 1 Stat Priority 1: No - Urgent/Priority 2 Urgent Priority 2: Yes Provider Notified: Ange Alejandro Provider Notified Time: 10:20 Criteria Met for Priority 2: c/o decreased movement Disposition - Disposition OB Disposition: Discharge to home Discharge Date: 09/26/23 Discharge Time: 10:25 I agree with the RN Medical Screening Exam: Yes Case reviewed; plan agreed upon as documented in EMR&OBIX.: Yes Diagnosis: DECREASED MOVEMENTS, THIRD TRIMESTER, UNSP
== END 2023-09-26 10:25 | disposition home or self-care (01) ==
LOC: FBPOP 09:20
PROVIDERS: ATTEND Obstetrics & Gynecology
DX: O36.8131 Decreased fetal movements, third trimester, fetus 1 (principal); O99.333 Smoking (tobacco) complicating pregnancy, third trimester; F17.200 Nicotine dependence, unspecified, uncomplicated; Z3A.31 31 weeks gestation of pregnancy; Z88.0 Allergy status to penicillin; Z88.5 Allergy status to narcotic agent
CPT/HCPCS: 59025; 99213

== ENCOUNTER → 2023-10-19 | Outpatient (CLI) | payer OTHER ==
--- NOTE | 2023-10-21 17:41 | US ---
EXAMINATION TYPE: US OB >= 14 wk fetus DATE OF EXAM: 10/19/2023 COMPARISON: None CLINICAL INDICATION: Female, 23 years old with history of O36.63X0 MATERNAL CARE FOR EXCESS JEAN WTH; Estimated weight TECHNIQUE: Transabdominal (TA) GESTATIONAL AGE / DATING Physician Established: (35 weeks/0 days) EDC: 11/23/2023 Dates by LMP: (NA weeks/NA days) EDC: NA Dates by First Scan: (NA weeks/NA days) EDC: NA Dates by Current Scan: (35 weeks/2 days) EDC: 11/21/2023 Beta HCG (if available): Not available SURVEY IUP: Single PLACENTA: Posterior PREVIA: No Previa BRITTANY: 9.53 cm Normal CERVICAL LENGTH (transabdominal: norm > 3.0cm): 2.85 cm BIOMETRY PRESENTATION: Vertex LIE: Longitudinal BPD: 8.83 cm 35 weeks / 5 days HC: 31.52 cm 35 weeks / 3 days AC: 31.55 cm 35 weeks / 3 days FL: 7.00 cm 35 weeks / 6 days ESTIMATED WEIGHT IN GRAMS: 2721 grams ESTIMATED WEIGHT IN LBS/OZ: 6 lbs. 0 oz. WEIGHT PERCENTAGE BASED ON ESTABLISHED DATES: 64.9% HC/AC: 1.00 Normal FL/AC: 22.20 Normal HEART RATE: 144 bpm RHYTHM: Normal IMPRESSION: 1. Single live intrauterine with established gestational age of 35 weeks 0 days. Current ul trasound biometry is concordant at 35 weeks 2 days (EFW% at 64.9). 2. Note that the measured cervical length is somewhat short at 2.85 cm. Close surveillance follow-up recommended. 3. Low normal BRITTANY at 9.5 cm.
== END | disposition home or self-care (01) ==
LOC: RADUSWWP 13:29
PROVIDERS: ATTEND Obstetrics & Gynecology
DX: O36.63X0 Maternal care for excessive fetal growth, third trimester, not applicable or unspecified (principal); O41.03X0 Oligohydramnios, third trimester, not applicable or unspecified; Z3A.35 35 weeks gestation of pregnancy
CPT/HCPCS: 76805

== ENCOUNTER 2023-10-29 21:56 | Outpatient (CLI) | payer OTHER ==
[2023-10-29 23:15] VITALS: BP 115/69; PULSE 92; RESP 16; TEMP 97.9
--- NOTE | 2023-10-30 07:57 | P.MSEPDOC ---
Presenting Problems - Arrival Data Date of Arrival on Unit: 10/29/23 Time of Arrival on Unit: 21:56 Mode of Transport: Ambulatory - Complaint OB-Reason for Admission/Chief Complaint: Possible Onset of Labor Comment: pt states that shes been having stomach tightning, back pain, nausea and headache Medical History - Information : 1 Para: 0 Term: 0 : 0 Abortions: Spontaneous or Elective: 0 Number of Living Children: 0 - Gestational Age Gestational Age by BELGICA (wks/days): 36 Weeks and 3 Days Review of Systems - Review of Systems Constitutional: No problems Breast: No problems ENT: No problems Cardiovascular: No problems Respiratory: No problems Gastrointestinal: No problems Genitourinary: No problems Musculoskeletal: No problems Neurological: No problems Skin: No problems Vital Signs - Temperature Temperature: 97.9 F Temperature Source: Temporal Artery Scan - Pulse Pulse Oximetery Pulse Rate: 92 Pulse Assessment Method: Pulse Oximetry - Respirations Respiratory Rate: 16 Oxygen Delivery Method: Room Air O2 Sat by Pulse Oximetry: 97 - Blood Pressure Right Arm Blood Pressure: 115/69 Blood Pressure Mean: 84 Blood Pressure Source: Automatic Cuff Medical Screen Scoring - Cervical Exam Dilation (cm): 0 - Uterine Contractions Intensity: Mild Resting: Soft to palpation - Assessment - Baby A Baseline FHR: 135 Heart Rate - NICHD Category: Category I (Normal) NST: Reactive Physician Notification - Physician Notified Physician Notified Date: 10/29/23 Physician Notified Time: 22:51 Physician: Lucas Stringer New Order Received: Yes - Notification Comment Comment: send home Maternal Triage Index - Maternal Triage Index Presenting for scheduled procedure w/no complaint: No - Stat/Priority 1 Stat Priority 1: No - Urgent/Priority 2 Urgent Priority 2: No - Prompt/Priority 3 Prompt Priority 3: Yes Criteria Met for Priority 3: pt 36 4/7 and complains of back pain and stomach tightness. Disposition - Disposition OB Disposition: Discharge to home Discharge Date: 10/29/23 Discharge Time: 23:00 I agree with the RN Medical Screening Exam: Yes Case reviewed; plan agreed upon as documented in EMR&OBIX.: Yes Diagnosis: FALSE LABOR BEFORE 37 COMPLETED WEEKS OF GEST, THIRD TRI
== END 2023-10-29 23:00 ==
LOC: FBPOP 21:56
PROVIDERS: ATTEND Obstetrics & Gynecology
DX: O47.03 False labor before 37 completed weeks of gestation, third trimester (principal); O26.893 Other specified pregnancy related conditions, third trimester; R51.9 Headache, unspecified; R11.0 Nausea; R10.9 Unspecified abdominal pain; M54.50 Low back pain, unspecified; O99.333 Smoking (tobacco) complicating pregnancy, third trimester; F17.200 Nicotine dependence, unspecified, uncomplicated; Z3A.36 36 weeks gestation of pregnancy; Z88.0 Allergy status to penicillin; Z88.5 Allergy status to narcotic agent
CPT/HCPCS: 59025; G0463; 99213

== ENCOUNTER → 2023-11-05 | Outpatient (CLI) | payer OTHER ==
[2023-11-05 22:03] VITALS: BP 125/78; PULSE 101; RESP 16; TEMP 98
--- NOTE | 2023-11-07 17:06 | P.MSEPDOC ---
Presenting Problems - Arrival Data Date of Arrival on Unit: 11/05/23 Time of Arrival on Unit: 19:55 Mode of Transport: Ambulatory - Complaint OB-Reason for Admission/Chief Complaint: Rule Out SROM Comment: Patient arrived to triage stating she thicks her water broke this morning, per patient she worked this morning and has felt wet all day while at work. Patient stated that she is experiencing pelvic pressure today pain is a 5/10 with constant pelvic pressure Medical History - Information : 1 Para: 0 Term: 0 : 0 Abortions: Spontaneous or Elective: 0 Number of Living Children: 0 - Gestational Age Gestational Age by BELGICA (wks/days): 37 Weeks and 3 Days Review of Systems - Review of Systems Constitutional: No problems Breast: No problems ENT: No problems Cardiovascular: No problems Respiratory: No problems Gastrointestinal: No problems Genitourinary: No problems Musculoskeletal: No problems Neurological: No problems Skin: No problems Vital Signs - Temperature Temperature: 98.0 F Temperature Source: Oral - Pulse Pulse Oximetery Pulse Rate: 101 Pulse Assessment Method: Pulse Oximetry - Respirations Respiratory Rate: 16 Oxygen Delivery Method: Room Air O2 Sat by Pulse Oximetry: 95 - Blood Pressure Right Arm Blood Pressure: 125/78 Blood Pressure Mean: 93 Blood Pressure Source: Automatic Cuff Medical Screen Scoring - Cervical Exam Dilation (cm): 1 Effacement (%): 70 Station: -3 Membranes: Intact - Uterine Contractions Frequency From (mins): 2 Frequency To (mins): 7 Duration From (seconds): 50 Duration To (seconds): 80 Intensity: Mild Resting: Soft to palpation - Assessment - Baby A Baseline FHR: 130 Heart Rate - NICHD Category: Category I (Normal) NST: Reactive Physician Notification - Physician Notified Physician Notified Date: 11/05/23 Physician Notified Time: 21:13 Physician: Lucas Stringer New Order Received: Yes - Notification Comment Comment: RN spoke with Dr. Stringer via telephone, Dr. Stringer aware of patients history, negative amnisure, FHR cat1, contractions, pain and cervical checks. Dr. Stringer is discharging patient. Maternal Triage Index - Non-Urgent/Priority 4 Non-Urgent Priority 4: Yes Criteria Met for Priority 4: Patient arrived to triage stating she thicks her water broke this morning, per patient she worked this morning and has felt wet all day while at work. Patient stated that she is experiencing pelvic pressure today pain is a 5/10 with constant pelvic pressure. Patient denies vaginal bleeding, intercourse within the past 24 hours and states she is not feeling contractions. Disposition - Disposition OB Disposition: Discharge to home Discharge Date: 11/05/23 Discharge Time: 21:18 I agree with the RN Medical Screening Exam: Yes Case reviewed; plan agreed upon as documented in EMR&OBIX.: Yes Diagnosis: FALSE LABOR AT OR AFTER 37 COMPLETED WEEKS OF GESTATION
== END ==
LOC: FBPOP 19:55
PROVIDERS: ATTEND Obstetrics & Gynecology
DX: O47.1 False labor at or after 37 completed weeks of gestation (principal); O26.893 Other specified pregnancy related conditions, third trimester; R10.2 Pelvic and perineal pain; O99.333 Smoking (tobacco) complicating pregnancy, third trimester; F17.200 Nicotine dependence, unspecified, uncomplicated; Z3A.37 37 weeks gestation of pregnancy; Z88.0 Allergy status to penicillin; Z88.5 Allergy status to narcotic agent
CPT/HCPCS: 59025; G0463; 99213

== ENCOUNTER 2023-11-14 02:02 | Inpatient (IN) | payer OTHER ==
[2023-11-14] MEDS ORDERED: TRANEXAMIC 1,000 MG/100ML-NACL 1,000 MG in EMPTY BAG 1 BAG IV PRN ×2 (02:56→17:16)
[2023-11-14] MEDS ORDERED: miSOPROStoL 200 MCG TAB PO PRN ×2 (02:56→17:16)
[2023-11-14] MEDS ORDERED: METHYLERGONOVINE 0.2 MG/ML 1 ML AMP IM PRN ×2 (02:56→17:16)
[2023-11-14] MEDS ORDERED: TERBUTALINE 1 MG/ML VIAL SQ PRN (02:56)
[2023-11-14] MEDS ORDERED: OXYTOCIN 10 UNIT/ML 1 ML VIAL IM PRN ×2 (02:56→17:16)
[2023-11-14] MEDS ORDERED: CARBOPROST TROMETHAMINE 250 MCG/ML 1 ML AMP IM PRN ×2 (02:56→17:16)
[2023-11-14] MEDS ORDERED: LIDOCAINE 0.5% (PF) 5 MG/ML (50 ML SDV) SQ PRN (02:56)
[2023-11-14 03:16] VITALS: RESP 16
[2023-11-14] MEDS: LACTATED RINGERS 1,000 ML IV SCH ×2 (03:18→19:30)
[2023-11-14] MEDS: OXYTOCIN 30 UNITS/500 ML NS 30 UNIT in SALINE 1 500ML.BAG IV SCH ×2 (03:19→19:30)
[2023-11-14 03:22] LABS: Basophils # (A) 0.1 k/uL (0-0.2); Basophils % (A) 1 %; Eosinophils # (A) 0.2 k/uL (0-0.7); Eosinophils % (A) 1 %; HCT 37.2 % (34.0-46.0); HGB 12.5 gm/dL (11.4-16.0); Lymphocytes # (A) 3.6 k/uL (1.0-4.8); Lymphocytes % (A) 23 %; MCH 28.8 pg (25.0-35.0); MCHC 33.6 g/dL (31.0-37.0); MCV 85.7 fL (80.0-100.0); Mean Platelet Volume 7.4; Monocytes # (A) 0.7 k/uL (0-1.0); Monocytes % (A) 5 %; Neutrophils # (A) 10.4 k/uL (1.3-7.7); Neutrophils % (A) 69 %; Platelet Count 303 k/uL (150-450); RBC 4.34 m/uL (3.80-5.40); WBC 15.2 k/uL (3.8-10.6)
[2023-11-14] MEDS: NALBUPHINE 10 MG/ML (10 ML MDV) IV PRN (06:39)
[2023-11-14] MEDS ORDERED: SODIUM CHLORIDE 0.9% 250 ML BAG ONE (11:26)
[2023-11-14] MEDS ORDERED: fentaNYL (PF) 50 MCG/ML 5 ML AMP ONE (11:26)
[2023-11-14] MEDS ORDERED: ROPIVACAINE 5 MG/ML 30 ML VIAL ONE (11:26)
--- NOTE | 2023-11-14 17:01 | P.PN ---
Progress Note - Text Progress Note Date: 11/14/23 The see dictated H&P per Dr. Patrick on this patient's admission. Brief summary this is a pleasant 23-year-old 1 para 0 female estimated gestational age 38-5/7 weeks who is admitted by Dr. Clarke last evening after spontaneous rupture membranes at 8:00 last night. Patient's been given antibiotics and Pitocin augmentation of labor throughout the day per Dr. Patrick. Current exam shows her to be 4 cm dilated 90% effaced and 0 station with some caput. Patient's very uncomfortable despite epidural anesthesia. She was last 4 cm approximately 5 hours ago. Patient inquires about delivery by section and I advised her to continue with labor at this time I'll recheck her in an hour. heart tones are category 1. If she continues to fail to progress then certainly we can proceed with a section at that time. All the patient's and family's questions were answered.
--- NOTE | 2023-11-14 17:19 | P.PN ---
Progress Note - Text Progress Note Date: 11/14/23 Patient this time is requesting section for delivery. Repeat examination shows no cervical change. Caput is noted and no descent beyond 0 station. I think at this time it is certainly reasonable to proceed with delivery by section. I briefly discussed the surgery with the patient and her family and we'll proceed as soon as possible. All patient's questions are answered written consent is obtained.
[2023-11-14] MEDS ORDERED: LACTATED RINGERS 1,000 ML IV SCH (17:30)
[2023-11-14] MEDS: CITRIC ACID-SODIUM CITRATE 15 ML CUP PO ONE (17:37)
[2023-11-14] MEDS ORDERED: KETOROLAC 15 MG/ML 1 ML VIAL ONE (18:07)
[2023-11-14] MEDS ORDERED: MORPHINE SULFATE (PF) 0.3 MG/0.3 ML SYR ONE (18:07)
[2023-11-14] MEDS ORDERED: ONDANSETRON 4 MG/2 ML VIAL ONE (18:07)
[2023-11-14] MEDS ORDERED: OXYTOCIN 30 UNITS/500 ML NS BAG IV ONE (18:07)
[2023-11-14] MEDS ORDERED: fentaNYL (PF) 50 MCG/ML 2 ML AMP ONE (18:07)
[2023-11-14] MEDS ORDERED: LANOLIN CREAM 1 GM TUBE TOPICAL PRN (19:07)
[2023-11-14] MEDS ORDERED: NALOXONE 0.4 MG/ML 1 ML VIAL IV PRN (19:07)
[2023-11-14] MEDS ORDERED: ZOLPIDEM 5 MG TAB PO PRN (19:07)
[2023-11-14] MEDS ORDERED: diphenhydrAMINE 50 MG/ML 1 ML VIAL IVP PRN (19:07)
[2023-11-14] MEDS ORDERED: ONDANSETRON 4 MG/2 ML VIAL IVP PRN (19:07)
[2023-11-14] MEDS ORDERED: SIMETHICONE 80 MG CHEWABLE PO PRN (19:07)
[2023-11-14] MEDS ORDERED: diphenhydrAMINE 25 MG CAP PO PRN (19:07)
--- NOTE | 2023-11-14 19:23 | P.OP ---
Date of Procedure: 11/14/23 Preoperative Diagnosis: #1: 38-5/7 week intrauterine . #2: Spontaneous rupture membranes. #3: Cephalopelvic dystocia. #4: Maternal request for section Postoperative Diagnosis: #1: Same. #2: Persistent occiput transverse presentation Procedure(s) Performed: Primary low transverse section Anesthesia: spinal Surgeon: Lucas Stringer Senior Product Consultant #1: Baldomero Eastman Estimated Blood Loss (ml): 800 Pathology: other (Placenta) Condition: stable Disposition: floor Indications for Procedure: Please see dictated H&P for intimate details of this patient's admission. In brief summary this is a pleasant 23-year-old 1 para 0 female estimated gestational age 38-5/7 weeks who had spontaneous rupture membranes at approximately 8:00 last evening. Patient is admitted to labor and delivery and is not having regular contractions and therefore has augmentation of labor. Patient progresses slowly is 2 cm throughout the night this morning she does progress to 4 cm dilated but despite continued adequate labor she does not have further cervical change or descent of the head. Patient is requesting section for delivery. I did discuss the surgery and risks with the patient and her family. Understand the risks of infection, bleeding, possible injury to bowel, bladder, vessels, and/or other organs. All the patient's questions are answered and a written consent is obtained. Operative Findings: This is a vigorous viable male Apgars are 9 and 9 delivery time is 1833 hrs. was in the occiput transverse presentation. Infant has spontaneous respirations and cry and grossly appeared normal. Description of Procedure: This patient is taken to the operating room where spinal anesthetic is administered without incident. She already had a Wyatt catheter placed to straight drain. Patient has an abdominal prep and drape. After the appropriate timeout, a scalpel is taken Pfannenstiel skin incision is then made. A second scalpel is taken down the fascia the fascia scored with a knife. Fascial incision extended bilaterally using the Church scissors. Fascia is then dissected off the rectus muscles sharply. Rectus muscles are the peritoneum was identified and entered sharply. Peritoneal incision extended superior and inferior without difficulty. Bladder blade is then placed. Bladder peritoneum was taken sharply off the lower uterine segment. Scalpels and taken low transverse uterine incision is then made. Using a hemostat I into the uterine cavity bluntly and there is loss of clear fluid. Uterine incision is extended bluntly and the 's head is guided through the incision with fundal pressure. has possible transverse presentation. There is no evidence of a nuchal cord. Mouth and nares are bulb suctioned. With more fundal pressure we deliver the rest of this 's body. This is a vigorous viable male infant Apgars are 9 and 9 delivery time is 1833 hrs. After delivery of the infant the umbilical cord is doubly clamped and cut appears to be trivascular. The placenta is then manually extracted intact. Uterus is then externalized and uterine incision demarcated with Lyon clamps. Uterine incision is then closed using 0 Vicryl running locked fashion 2 layers. Additional [id number]-go-[id number] stitches put in the midline for added hemostasis. The bladder peritoneum was then identified and closed using 0 Vicryl running fashion. Excess fluid is removed from the abdomen and pelvis. Uterus, tubes, ovaries appear normal for term gestation. With excellent hemostasis noted uterus is placed back into the abdomen. The parietal peritoneum was then identified and closed using 0 Vicryl interrupted fashion. The rectus muscles reapproximated in 0 Vicryl interrupted fashion. The fascial incision is then closed using 0 PDS. Fascial incision is intact and hemostatic. Subcutaneous tissues and closed using a 3-0 Vicryl. Skin is and closed using jossy. All counts are correct 3. There are no complications. and mother are taken together birthing suite in satisfactory condition.
[2023-11-14] MEDS: ACETAMINOPHEN TAB 500 MG TAB PO SCH (22:39)
[2023-11-14] MEDS: SENNOSIDES-DOCUSATE SODIUM 1 EACH TAB PO SCH (22:39)
[2023-11-14] MEDS: METOCLOPRAMIDE 5 MG/ML 2 ML VIAL IVP PRN (23:22)
[2023-11-15] MEDS: KETOROLAC 15 MG/ML 1 ML VIAL IVP SCH (00:32)
[2023-11-15] MEDS: IBUPROFEN 600 MG TAB PO SCH (01:08)
[2023-11-15 06:07] LABS: Basophils % (A) 0 %; Eosinophils # (A) 0.1 k/uL (0-0.7); Eosinophils % (A) 0 %; HCT 30.6 % (34.0-46.0); HGB 10.1 gm/dL (11.4-16.0); Lymphocytes % (A) 15 %; MCH 28.5 pg (25.0-35.0); MCV 86.5 fL (80.0-100.0); Mean Platelet Volume 7.5; Monocytes # (A) 1.2 k/uL (0-1.0); Monocytes % (A) 6 %; Neutrophils # (A) 15.1 k/uL (1.3-7.7); Neutrophils % (A) 77 %; Platelet Count 266 k/uL (150-450); RBC 3.54 m/uL (3.80-5.40); WBC 19.7 k/uL (3.8-10.6)
--- NOTE | 2023-11-15 08:43 | P.MSEPDOC ---
Presenting Problems - Arrival Data Date of Arrival on Unit: 11/14/23 Time of Arrival on Unit: 02:56 Mode of Transport: Ambulatory - Complaint OB-Reason for Admission/Chief Complaint: Rule Out SROM Comment: Pt presents to triage with complaints of SROM approximately at 1999 this evening Medical History - Information : 1 Para: 0 Term: 0 : 0 Abortions: Spontaneous or Elective: 0 Number of Living Children: 0 - Gestational Age Gestational Age by BELGICA (wks/days): 38 Weeks and 5 Days Review of Systems - Review of Systems Constitutional: No problems Breast: No problems ENT: No problems Cardiovascular: No problems Respiratory: No problems Gastrointestinal: No problems Genitourinary: No problems Musculoskeletal: No problems Neurological: No problems Skin: No problems Vital Signs - Temperature Temperature: 98.3 F Temperature Source: Oral - Pulse Pulse Oximetery Pulse Rate: 93 Pulse Assessment Method: Automatic Cuff - Respirations Respiratory Rate: 16 Oxygen Delivery Method: Room Air - Blood Pressure Right Arm Blood Pressure: 95/61 Blood Pressure Mean: 72 Blood Pressure Source: Automatic Cuff Medical Screen Scoring - Cervical Exam Dilation (cm): 2 Effacement (%): 70 Station: -2 Membranes: Ruptured - Uterine Contractions Resting: Soft to palpation - Assessment - Baby A Baseline FHR: 140 Heart Rate - NICHD Category: Category I (Normal) NST: Reactive Physician Notification - Physician Notified Physician Notified Date: 11/14/23 Physician Notified Time: 02:30 Physician: Ange Alejandro Order Received: Yes - Notification Comment Comment: Dr. Alejandro called back. Report given regarding maternal status, complaints of SROM at 1999, GA, G/P, VS, CAT1 FHT, Reactive NST, Amnisure positive, cervical exam, GBS negative. Orders to admit pt, start pitocin Maternal Triage Index - Maternal Triage Index Presenting for scheduled procedure w/no complaint: No - Stat/Priority 1 Stat Priority 1: No - Urgent/Priority 2 Urgent Priority 2: No - Prompt/Priority 3 Prompt Priority 3: No - Non-Urgent/Priority 4 Non-Urgent Priority 4: Yes Criteria Met for Priority 4: Pt presents to triage with complaints of SROM approximately at 1999 this evening Disposition - Disposition OB Disposition: Admit I agree with the RN Medical Screening Exam: Yes Case reviewed; plan agreed upon as documented in EMR&OBIX.: Yes Diagnosis: ENCOUNTER FOR FULL-TERM UNCOMPLICATED DELIVERY
--- NOTE | 2023-11-15 08:50 | P.HPOB ---
History of Present Illness H&P Date: 11/14/23 Chief Complaint: SROM 23 year old presents at term c/o SROM at 8pm on 11/13/23. When she presented she was barely anais and her cervix was 2, 80, -2 station. heart tones category 1. She was admitted by Dr. Alejandro and started on Pitocin augmentation. Review of Systems All systems: negative Constitutional: Denies chills, Denies fever Eyes: denies blurred vision, denies pain Ears, nose, mouth and throat: Denies headache, Denies sore throat Cardiovascular: Denies chest pain, Denies shortness of breath Respiratory: Denies cough Gastrointestinal: Denies abdominal pain, Denies diarrhea, Denies nausea, Denies vomiting Genitourinary: Denies dysuria, Denies hematuria Musculoskeletal: Denies myalgias Integumentary: Denies pruritus, Denies rash Neurological: Denies numbness, Denies weakness Psychiatric: Denies anxiety, Denies depression Endocrine: Denies fatigue, Denies weight change Past Medical History Past Medical History: No Reported History Additional Past Medical History / Comment(s): autoimmune dermatomyocytis - in remission, PCOS, COVID JANUARY 2021 History of Any Multi-Drug Resistant Organisms: None Reported Past Surgical History: No Surgical Hx Reported Past Psychological History: Anxiety, Bipolar, Depression, Schizoaffective Disorder Smoking Status: Never smoker Past Alcohol Use History: None Reported Past Drug Use History: Marijuana Medications and Allergies Home Medications Medication Instructions Recorded Confirmed Type No Known Home Medications 10/29/23 11/14/23 History Allergies Allergy/AdvReac Type Severity Reaction Status Date / Time Penicillins Allergy Rash/Hives Verified 11/14/23 02:03 hydromorphone [From Dilaudid] AdvReac Nausea & Verified 11/14/23 02:03 Vomiting Exam Osteopathic Statement: *. No significant issues noted on an osteopathic structural exam other than those noted in the History and Physical/Consult. Vital Signs Temp Pulse Resp BP Pulse Ox 11/15/23 08:43 98.3 F 93 16 95/61 11/15/23 08:00 98.3 F 93 16 95/61 11/15/23 04:36 97.5 F L 99 16 102/62 95 11/15/23 00:35 98.9 F 110 H 16 104/62 96 11/14/23 21:06 97 16 105/62 96 11/14/23 20:51 98 16 115/68 96 11/14/23 20:36 97 16 112/71 97 11/14/23 20:21 97.9 F 92 16 106/69 98 11/14/23 20:06 93 16 121/73 97 11/14/23 19:51 97.5 F L 91 16 116/72 98 11/14/23 19:36 98.1 F 100 16 118/59 97 11/14/23 19:21 96 16 166/65 100 11/14/23 19:07 100 11/14/23 19:06 97.5 F L 104 H 16 112/76 100 Intake and Output 11/14/23 11/15/23 11/15/23 22:59 06:59 14:59 Intake Total 167 Output Total 1842 600 Balance -1675 -600 Intake: Intake, IV Titration 167 Amount Oxytocin 30 Units/500 ml 167 Ns 30 unit In Saline 1 500ml.bag @ Per Protocol IV .Q0M [facility] Rx#:[id number] Output: Urine 1150 600 Uretheral (Wyatt) 350 Estimated Blood Loss 600 Output, Quantitative 92 Blood Loss Other: Voiding Method Indwelling Catheter Indwelling Catheter Heart: Regular rate and rhythm Lungs: Clear to auscultation bilaterally Abdomen: Soft, nontender Extremities: Negative Homans sign Results Result Diagrams: 11/15/23 05:48 Abnormal Lab Results - Last 24 Hours (Table) 11/15/23 Range/Units 05:48 WBC 19.7 H (3.8-10.6) k/uL RBC 3.54 L (3.80-5.40) m/uL Hgb 10.1 L (11.4-16.0) gm/dL Hct 30.6 L (34.0-46.0) % Neutrophils # 15.1 H (1.3-7.7) k/uL Monocytes # 1.2 H (0-1.0) k/uL Assessment and Plan (1) Spontaneous rupture of membranes Current Visit: Yes Status: Acute Code(s): [id number] - SNOMED Code(s): 247248740 Plan: 1. Admit to family place 2. Pitocin augmentation 3. Anticipate normal vaginal delivery
--- NOTE | 2023-11-15 08:51 | P.PN ---
Progress Note - Text Progress Note Date: 11/15/23 (327) Anesthesia Postop day 1 Subjective: Status Post section with Duramorph. Patient seen and examined. Doing well without complaint. VAS 2 out of 10. Mild nausea. Tolerable. No pruritus. Denies fever. Gross lower extremity strength intact. Without apparent anesthetic complications. Objective: Vital signs reviewed Heart: Regular Rate Lungs: Good chest excursion Abdomen: Appears nondistended Assessment: Status post section with Duramorph postop day 1 Plan: 1. Continue current care with your medical management. Anticipated end to the duration of the Duramorph around surgery time today. You may see increased pain needs around this time. 2. This note was dictated using [employer] software. Please be advised there is a potential for misspellings or errors in wood patternmaker.
--- NOTE | 2023-11-16 08:25 | P.PNOBGPC ---
Subjective - Subjective Principal diagnosis: status Post primary low transverse postop day 2 Interval history: Sincerely and examined. Denies nausea, vomiting, chest pain, shortness of breath or calf pain. Patient reports: Reports appetite normal, Reports voiding normally, Reports pain well controlled, Reports ambulating normally : doing well Objective - Vital Signs Latest vital signs: Vital Signs Temp Pulse Resp BP Pulse Ox 11/16/23 00:00 98.9 F 61 16 105/62 97 11/15/23 16:00 98.5 F 66 16 105/66 11/15/23 08:43 98.3 F 93 16 95/61 - Exam Lungs: bilateral: normal Chest: Normal S1, Normal S2 Extremities: Present: normal Abdomen: Present: normal appearance, soft. Absent: distention, tenderness Incision: Present: normal, dry, intact Uterus: Present: normal, firm Assessment and Plan (1) Spontaneous rupture of membranes Current Visit: Yes Status: Resolved Code(s): KCR4032 - SNOMED Code(s): 676608745 (2) Status post primary low transverse section Current Visit: Yes Status: Acute Code(s): Z98.891 - HISTORY OF UTERINE SCAR FROM PREVIOUS SURGERY SNOMED Code(s): 738496583 Plan: 1. increase ambulation. 2. reg diet
[2023-11-16] MEDS: DIPH,PERTUS(ACELL)TETVAC-LF 0.5 ML VIAL IM ONE (12:21)
[2023-11-16] MEDS: MEASLES-MUMPS-RUBELLA VACC/PF 12,500 UNIT/0.5 ML VIAL SQ ONE (12:22)
[2023-11-16 16:36] VITALS: BP 115/68; PULSE 70; TEMP 98.1
--- NOTE | 2023-11-20 08:52 | P.ANPRN ---
Procedure Note - Anesthesia - Epidural/Spinal Spinal Time Out Performed: Yes Date of Procedure: 11/14/23 Procedure Start Time: 18:14 Procedure Stop Time: 18:21 Location of Patient: OR Indication: Acute Post-Operative Pain, Requested by Surgeon (pedrito) Sedation Type: Awake Preparation: Sterile Prep Number of Attempts: 3 Position: Sitting Catheter: None Needle Guage: 25 (x5in) Injectate: Bupi 0.75% 1.3cc DM 300mcg Blood Aspirated: No Pain Paresthesia on Injection Noted: No Events: Uneventful and Well Tolerated
== END 2023-11-16 16:51 | disposition home or self-care (01) | DRG 787 ==
LOC: FBPOP 02:02 → 4FBP 02:20
PROVIDERS: ADMIT Obstetrics & Gynecology; ATTEND Obstetrics & Gynecology
PROC: 10D00Z1 Extraction of Products of Conception, Low, Open Approach (ICD-10-PCS; principal; 2023-11-14 18:07)
PROC: 3E0234Z Introduction of Serum, Toxoid and Vaccine into Muscle, Percutaneous Approach (ICD-10-PCS; 2023-11-16)
PROC: 3E0134Z Introduction of Serum, Toxoid and Vaccine into Subcutaneous Tissue, Percutaneous Approach (ICD-10-PCS; 2023-11-16)
DX: O64.0XX0 Obstructed labor due to incomplete rotation of fetal head, not applicable or unspecified (principal); M33.10 Other dermatomyositis, organ involvement unspecified; F25.9 Schizoaffective disorder, unspecified; F31.9 Bipolar disorder, unspecified; O99.891 Other specified diseases and conditions complicating pregnancy; Z37.0 Single live birth; Z28.310 Unvaccinated for COVID-19; Z3A.38 38 weeks gestation of pregnancy; Z23 Encounter for immunization; O99.344 Other mental disorders complicating childbirth; F41.9 Anxiety disorder, unspecified; O34.83 Maternal care for other abnormalities of pelvic organs, third trimester; E28.2 Polycystic ovarian syndrome; Z86.16 Personal history of COVID-19
CPT/HCPCS: 59025; 84112; 85025; 86850; 86900; 86901; 88307; 90707; 90715; 99213

== ENCOUNTER 2024-08-05 04:37 | Emergency (ER) | payer OTHER ==
[2024-08-05] MEDS: KETOROLAC 15 MG/ML 1 ML VIAL IVP STA (06:29)
--- NOTE | 2024-08-05 06:36 | ED ---
General Adult HPI - General Chief complaint: Shortness of Breath Stated complaint: Chest Pressure Time Seen by Provider: 08/05/24 05:10 Source: patient Mode of arrival: ambulatory Limitations: no limitations - History of Present Illness Initial comments: 24-year-old female presents emergency department reporting midsternal chest pressure which radiates around to the flank. States the symptoms are worse when she takes a deep breath. Patient vapes. Has sick contacts from work. Is concern for pneumonia. She woke up around 2:30 AM with the symptoms which were sudden onset and could not get back to sleep. Does have associated shortness of breath. Admits to nonproductive cough. No history of coronary disease. No history of asthma. Does not have any history of cardiac disease. No concern for . No other alleviating, precipitating or modifying factors - Related Data Home Medications Medication Instructions Recorded Confirmed No Known Home Medications 10/29/23 11/14/23 Allergies Allergy/AdvReac Type Severity Reaction Status Date / Time Penicillins Allergy Rash/Hives Verified 08/05/24 04:47 hydromorphone [From Dilaudid] AdvReac Nausea & Verified 08/05/24 04:47 Vomiting Review of Systems ROS Statement: Those systems with pertinent positive or pertinent negative responses have been documented in the HPI. ROS Other: All systems not noted in ROS Statement are negative. Past Medical History Past Medical History: No Reported History Additional Past Medical History / Comment(s): autoimmune dermatomyocytis - in remission, PCOS, COVID JANUARY 2021 History of Any Multi-Drug Resistant Organisms: None Reported Past Surgical History: Section Additional Past Surgical History / Comment(s): November 2023 Past Psychological History: Anxiety, Bipolar, Depression, Schizoaffective Disorder Smoking Status: Vaper Past Alcohol Use History: None Reported Past Drug Use History: Marijuana General Exam Limitations: no limitations General appearance: alert, in no apparent distress Head exam: Present: atraumatic, normocephalic, normal inspection Eye exam: Present: normal appearance, PERRL, EOMI. Absent: scleral icterus, conjunctival injection, periorbital swelling ENT exam: Present: normal exam, mucous membranes moist Neck exam: Present: normal inspection. Absent: tenderness, meningismus, lymphadenopathy Respiratory exam: Present: normal lung sounds bilaterally. Absent: respiratory distress, wheezes, rales, rhonchi, stridor Cardiovascular Exam: Present: regular rate, normal rhythm, normal heart sounds. Absent: systolic murmur, diastolic murmur, rubs, gallop, clicks GI/Abdominal exam: Present: soft, normal bowel sounds. Absent: distended, tenderness, guarding, rebound, rigid Extremities exam: Present: normal inspection, full ROM, normal capillary refill. Absent: tenderness, pedal edema, joint swelling, calf tenderness Back exam: Present: normal inspection Neurological exam: Present: alert, oriented X3, CN II-XII intact Psychiatric exam: Present: normal affect, normal mood Skin exam: Present: warm, dry, intact, normal color. Absent: rash Course Vital Signs 08/05/24 08/05/24 04:43 07:18 Temperature 98.7 F 97.0 F L Pulse Rate 84 75 Respiratory 18 16 Rate Blood Pressure 120/74 96/63 O2 Sat by Pulse 99 96 Oximetry Medical Decision Making - Medical Decision Making Was pt. sent in by a medical professional or institution (, PA, PROJECT LANDSCAPE ARCHITECT, urgent care, hospital, or halfway...) When possible be specific @ -No Did you speak to anyone other than the patient for history (EMS, parent, family, police, friend...)? What history was obtained from this source @ -No Did you review nursing and triage notes (agree or disagree)? Why? @ -I reviewed and agree with nursing and triage notes Were old charts reviewed (outside hosp., previous admission, EMS record, old EKG, old radiological studies, urgent care reports/EKG's, halfway records)? Report findings @ -No old charts were reviewed Differential Diagnosis (chest pain, altered mental status, abdominal pain women, abdominal pain men, vaginal bleeding, weakness, fever, dyspnea, syncope, headache, dizziness, GI bleed, back pain, seizure, CVA, palpatations, mental health, musculoskeletal)? @ -Differential Chest Pain: Stable Angina, Unstable Angina, STEMI, NSTEMI Aortic Dissection, Pneumothorax, Musculoskeletal, Esophageal Spasm GERD, Cholecystitis, Pancreatitis, Zoster, this is not meant to be an all-inclusive list. EKG interpreted by me (3pts min.). @ -Yes and demonstrates sinus rhythm with a rate of 73. MA interval 150. QRS 78. QTc of 407. No acute ST segment elevations or depressions X-rays interpreted by me (1pt min.). @ -Yes and demonstrates no acute process CT interpreted by me (1pt min.). @ -None done U/S interpreted by me (1pt. min.). @ -None done What testing was considered but not performed or refused? (CT, X-rays, U/S, labs)? Why? @ -None What meds were considered but not given or refused? Why? @ -None Did you discuss the management of the patient with other professionals (professionals i.e. , PA, PROJECT LANDSCAPE ARCHITECT, lab, RT, psych nurse, social science manager, manager functional, teacher, career services officer, case monitor)? Give summary @ -No Was smoking cessation discussed for >3mins.? @ -No Was critical care preformed (if so, how long)? @ -No Were there social determinants of health that impacted care today? How? (Homelessness, low income, unemployed, alcoholism, drug addiction, transportation, low edu. Level, literacy, decrease access to med. care, fci, rehab)? @ -No Was there de-escalation of care discussed even if they declined (Discuss DNR or withdrawal of care, Hospice)? DNR status @ -No What co-morbidities impacted this encounter? (DM, HTN, Smoking, COPD, CAD, Cancer, CVA, ARF, Chemo, Hep., AIDS, mental health diagnosis, sleep apnea, morbid obesity)? @ -None Was patient admitted / discharged? Hospital course, mention meds given and route, prescriptions, significant lab abnormalities, going to OR and other pertinent info. @ -Upon arrival patient seen and evaluated in room 11. Thorough history and physical exam was performed. IV access was established. Laboratory studies are conducted. Chest x-ray was performed. Results are discussed with patient. Patient stable at this time. Will be discharged home. Instructed follow-up with her primary care doctor within 2 to 4 days for reevaluation of her symptoms . Return for any new or worsening symptoms. Patient was agreeable plan was discharged home in stable condition Undiagnosed new problem with uncertain prognosis? @ -No Drug Therapy requiring intensive monitoring for toxicity (Heparin, Nitro, Insulin, Cardizem)? @ -No Were any procedures done? @ -No Diagnosis/symptom? @ -Acute atypical chest pain Acute, or Chronic, or Acute on Chronic? @ -Acute Uncomplicated (without systemic symptoms) or Complicated (systemic symptoms)? @ -Complicated Side effects of treatment? @ -No Exacerbation, Progression, or Severe Exacerbation? @ -No Poses a threat to life or bodily function? How? (Chest pain, USA, IA, pneumonia, PE, COPD, DKA, ARF, appy, cholecystitis, CVA, Diverticulitis, Homicidal, Suicidal, threat to staff... and all critical care pts) @ -No - Lab Data Result diagrams: 08/05/24 06:22 08/05/24 06:22 Lab Results 08/05/24 08/05/24 08/05/24 Range/Units 06:22 06:22 06:22 WBC 11.9 H (3.8-10.6) k/uL RBC 4.63 (3.80-5.40) m/uL Hgb 13.7 (11.4-16.0) gm/dL Hct 42.4 (34.0-46.0) % MCV 91.6 (80.0-100.0) fL MCH 29.5 (25.0-35.0) pg MCHC 32.2 (31.0-37.0) g/dL RDW 13.1 (11.5-15.5) % Plt Count 287 (150-450) k/uL MPV 7.0 Neutrophils % 67 % Lymphocytes % 21 % Monocytes % 7 % Eosinophils % 4 % Basophils % 1 % Neutrophils # 8.0 H (1.3-7.7) k/uL Lymphocytes # 2.5 (1.0-4.8) k/uL Monocytes # 0.8 (0-1.0) k/uL Eosinophils # 0.5 (0-0.7) k/uL Basophils # 0.1 (0-0.2) k/uL Sodium (137-145) mmol/L Potassium (3.5-5.1) mmol/L Chloride (98-107) mmol/L Carbon Dioxide (22-30) mmol/L Anion Gap mmol/L BUN (7-17) mg/dL Creatinine (0.52-1.04) mg/dL Est GFR (CKD-EPI)AfAm (>60 ml/min/1.73 sqM) Est GFR (CKD-EPI)NonAf (>60 ml/min/1.73 sqM) Glucose (74-99) mg/dL Calcium (8.4-10.2) mg/dL Total Bilirubin (0.2-1.3) mg/dL AST (14-36) U/L ALT (4-34) U/L Alkaline Phosphatase (38-126) U/L Troponin I (0.000-0.034) ng/mL Total Protein (6.3-8.2) g/dL Albumin (3.5-5.0) g/dL Urine Color Yellow Urine Appearance Clear (Clear) Urine pH 5.5 (5.0-8.0) Ur Specific [place] 1.027 (1.001-1.035) Urine Protein Trace H (Negative) Urine Glucose (UA) Negative (Negative) Urine Ketones Negative (Negative) Urine Blood Negative (Negative) Urine Nitrite Negative (Negative) Urine Bilirubin Negative (Negative) Urine Urobilinogen <2.0 (<2.0) mg/dL Ur Leukocyte Esterase Negative (Negative) Urine HCG, Qual Not Detected (Not Detectd) 08/05/24 08/05/24 Range/Units 06:22 06:22 WBC (3.8-10.6) k/uL RBC (3.80-5.40) m/uL Hgb (11.4-16.0) gm/dL Hct (34.0-46.0) % MCV (80.0-100.0) fL MCH (25.0-35.0) pg MCHC (31.0-37.0) g/dL RDW (11.5-15.5) % Plt Count (150-450) k/uL MPV Neutrophils % % Lymphocytes % % Monocytes % % Eosinophils % % Basophils % % Neutrophils # (1.3-7.7) k/uL Lymphocytes # (1.0-4.8) k/uL Monocytes # (0-1.0) k/uL Eosinophils # (0-0.7) k/uL Basophils # (0-0.2) k/uL Sodium 139 (137-145) mmol/L Potassium 4.2 (3.5-5.1) mmol/L Chloride 104 (98-107) mmol/L Carbon Dioxide 25 (22-30) mmol/L Anion Gap 10 mmol/L BUN 12 (7-17) mg/dL Creatinine 0.70 (0.52-1.04) mg/dL Est GFR (CKD-EPI)AfAm >90 (>60 ml/min/1.73 sqM) Est GFR (CKD-EPI)NonAf >90 (>60 ml/min/1.73 sqM) Glucose 86 (74-99) mg/dL Calcium 9.2 (8.4-10.2) mg/dL Total Bilirubin 0.6 (0.2-1.3) mg/dL AST 65 H (14-36) U/L ALT 69 H (4-34) U/L Alkaline Phosphatase 81 (38-126) U/L Troponin I <0.012 (0.000-0.034) ng/mL Total Protein 7.1 (6.3-8.2) g/dL Albumin 4.2 (3.5-5.0) g/dL Urine Color Urine Appearance (Clear) Urine pH (5.0-8.0) Ur Specific [place] (1.001-1.035) Urine Protein (Negative) Urine Glucose (UA) (Negative) Urine Ketones (Negative) Urine Blood (Negative) Urine Nitrite (Negative) Urine Bilirubin (Negative) Urine Urobilinogen (<2.0) mg/dL Ur Leukocyte Esterase (Negative) Urine HCG, Qual (Not Detectd) Disposition Clinical Impression: Atypical chest pain Disposition: HOME SELF-CARE Condition: Stable Instructions (If sedation given, give patient instructions): Chest Pain (ED) Additional Instructions: Please follow-up with your primary care doctor in regards to your symptoms. I would like them to repeat your liver enzyme studies within 1 to 2 weeks. Return should you have any new or worsening symptoms Is patient prescribed a controlled substance at d/c from ED?: No Referrals: Remington Chandra MD [Primary Care Provider] - 1-2 days Time of Disposition: 07:08
[2024-08-05 06:43] LABS: Basophils # (A) 0.1 k/uL (0-0.2); Basophils % (A) 1 %; Eosinophils # (A) 0.5 k/uL (0-0.7); Eosinophils % (A) 4 %; HCT 42.4 % (34.0-46.0); HGB 13.7 gm/dL (11.4-16.0); Lymphocytes # (A) 2.5 k/uL (1.0-4.8); Lymphocytes % (A) 21 %; MCH 29.5 pg (25.0-35.0); MCHC 32.2 g/dL (31.0-37.0); MCV 91.6 fL (80.0-100.0); Monocytes # (A) 0.8 k/uL (0-1.0); Monocytes % (A) 7 %; Neutrophils % (A) 67 %; Platelet Count 287 k/uL (150-450); RBC 4.63 m/uL (3.80-5.40); RDW 13.1 % (11.5-15.5); WBC 11.9 k/uL (3.8-10.6)
[2024-08-05 06:45] LABS: Appearance,Urine Clear (Clear); Bilirubin,Urine Negative (Negative); Blood,Urine Negative (Negative); Color,Urine Yellow; Glucose,Urine (UA) Negative (Negative); Ketones,Urine Negative (Negative); Leukocyte Esterase,Urine Negative (Negative); Nitrite,Urine Negative (Negative); PH, Urine 5.5 (5.0-8.0); Protein,Urine Trace (Negative); Specific Gravity,Urine 1.027 (1.001-1.035); Urobilinogen,Urine <2.0 mg/dL (<2.0)
[2024-08-05 07:00] LABS: ALT 69 U/L (4-34); AST 65 U/L (14-36); African American GFR (CKD) >90 (>60 ml/min/1.73 sqM); Albumin 4.2 g/dL (3.5-5.0); Alkaline Phosphatase 81 U/L (38-126); Anion Gap 10 mmol/L; Blood Urea Nitrogen 12 mg/dL (7-17); Calcium 9.2 mg/dL (8.4-10.2); Carbon Dioxide 25 mmol/L (22-30); Chloride 104 mmol/L (98-107); Glucose 86 mg/dL (74-99); Non-African American GFR(CKD) >90 (>60 ml/min/1.73 sqM); Potassium 4.2 mmol/L (3.5-5.1); Sodium 139 mmol/L (137-145); Total Bilirubin 0.6 mg/dL (0.2-1.3); Total Protein 7.1 g/dL (6.3-8.2)
[2024-08-05 07:20] VITALS: BP 96/63; PULSE 75; RESP 16; TEMP 97
--- NOTE | 2024-08-05 07:33 | XR ---
EXAMINATION TYPE: XR chest 2V DATE OF EXAM: 08/05/2024 6:29 AM COMPARISON: 05/22/2021 CLINICAL INDICATION: Female, 24 years old with shortness of breath history of difficulty breathing, , TECHNIQUE: PA and lateral views FINDINGS: The cardiomediastinal silhouette, aorta, and pulmonary vasculature are within normal limits. Lungs an d pleural spaces are clear. IMPRESSION: No acute cardiopulmonary process. [facility], , 08/05/2024 7:30 AM
== END 2024-08-05 07:20 | disposition home or self-care (01) ==
LOC: EC 04:37
DX: R07.89 Other chest pain (principal); F17.290 Nicotine dependence, other tobacco product, uncomplicated; Z88.0 Allergy status to penicillin; Z88.8 Allergy status to other drugs, medicaments and biological substances
CPT/HCPCS: 36415; 93005; 80053; 84484; 85025; 81003; 81025; 71046; 99285; 96374; J1885

== ENCOUNTER 2024-12-23 12:35 | Day surgery (SDC) | payer OTHER ==
[~2024-12-23 12:35] MED LIST: INDOCYANINE GREEN 25 MG VIAL IV ONE; LIDOCAINE 1% (10MG/ML) FOR IV START INTRADERMA PRN; fentaNYL (PF) 50 MCG/ML 2 ML AMP IV PRN
[2024-12-23] MEDS: IV FLUID CONTINUATION 1,000 ML IV ONE ×2 (13:09→16:28)
[2024-12-23] MEDS: ONDANSETRON 4 MG/2 ML VIAL IVP ONE (13:10)
[2024-12-23] MEDS: HEPARIN SODIUM,PORCINE 5,000 UNIT/ML 1 ML VIAL SQ PRN (13:11)
[2024-12-23] MEDS: DEXAMETHASONE SOD PHOSPHATE 4 MG/ML 1 ML VIAL IV ONE (13:11)
[2024-12-23] MEDS: INDOCYANINE GREEN 25 MG VIAL IV STA (13:20)
[2024-12-23 13:22] LABS: Basophils # (A) 0.08 10*3/uL (0.00-0.10); Basophils % (A) 0.9 %; Eosinophils % (A) 3.5 %; HCT 42.5 % (37.2-46.3); HGB 14.6 g/dL (12.0-15.0); Lymphocytes # (A) 3.03 10*3/uL (0.90-5.00); Lymphocytes % (A) 35.6 %; MCH 30.3 pg (27.0-32.0); MCHC 34.4 g/dL (32.0-37.0); MCV 88.2 fL (80.0-97.0); Mean Platelet Volume 8.9 fL (9.5-12.2); Monocytes # (A) 0.59 10*3/uL (0.20-1.00); Monocytes % (A) 6.9 %; Neutrophils # (A) 4.49 10*3/uL (1.80-7.70); Neutrophils % (A) 52.9 %; Platelet Count 290 10*3/uL (140-440); RBC 4.82 10*6/uL (4.10-5.20); RDW 11.7 % (11.5-14.5); WBC 8.51 10*3/uL (4.50-10.00)
[2024-12-23] MEDS ORDERED: SUCCINYLCHOLINE CHLORIDE 200 MG/10 ML VIAL IV ONE (13:48)
[2024-12-23] MEDS ORDERED: fentaNYL (PF) 50 MCG/ML 2 ML AMP ONE (13:48)
[2024-12-23] MEDS ORDERED: GLYCOPYRROLATE 0.2 MG/ML 2 ML VIAL ONE (13:48)
[2024-12-23] MEDS ORDERED: MIDAZOLAM 2 MG/2 ML VIAL ONE (13:48)
[2024-12-23] MEDS ORDERED: ePHEDrine 50 MG/ML 1 ML VIAL ONE (13:48)
[2024-12-23] MEDS ORDERED: PROPOFOL 10 MG/ML 20 ML VIAL IV ONE (13:48)
[2024-12-23] MEDS ORDERED: LIDOCAINE 1% INJ 10MG/ML (20 ML MDV) ONE (13:48)
[2024-12-23] MEDS ORDERED: NEOSTIGMINE 1 MG/ML 10 ML VIAL ONE (13:48)
[2024-12-23] MEDS ORDERED: ROCURONIUM 10 MG/ML (5 ML VIAL) IV ONE (13:48)
[2024-12-23] MEDS: ceFAZolin 2 GM in DEXTROSE 5% IN WATER 50 ML IVPB PRN (13:51)
[2024-12-23] MEDS: LIDOCAINE 1%-EPI 1:100,000 20 ML VIAL SQ ONE ×3 (14:10)
[2024-12-23] MEDS: LACTATED RINGERS 1,000 ML IV ONE (14:46)
--- NOTE | 2024-12-23 15:02 | P.OP ---
Date of Procedure: 12/23/24 Preoperative Diagnosis: Chronic calculus cholecystitis Postoperative Diagnosis: Chronic calculus cholecystitis Procedure(s) Performed: Robotic cholecystectomy Anesthesia: SUKHJINDER Surgeon: Danilo Weaver Pathology: other (Gallbladder) Condition: stable Disposition: same day Indications for Procedure: 24-year-old female presents to the surgery clinic with complaint of right upper quadrant abdominal pain. She is found to have cholelithiasis on workup. Plan for robotic cholecystectomy. Risks, benefits and alternatives were provided to the patient. All questions answered prior to attending the operating suite. Operative Findings: Gallstones Description of Procedure: Patient was brought to the operating suite and placed in supine position on the operating table. Sedation was provided by anesthesia and the patient underwent endotracheal intubation. The patient was then prepped and draped in regular sterile fashion. An infraumbilical incision was made and dissection was carried to the fascia. The fascia was incised and an 8 mm trocar was placed. Pneumoperitoneum was achieved. The patient was then placed in appropriate position. 2 additional 8 mm trocars were placed in the right upper quadrant and 1 in the left upper quadrant. Robot was then docked. The gallbladder was then grasped and retracted superiorly and laterally. The gallbladder appeared mildly distended. Dissection was carried along the infundibulum towards the cystic duct and the cystic duct was skeletonized. The cystic artery was similarly skeletonized and critical view was obtained. ICG was used to confirm anatomy. 2 clips were placed proximally on the cystic duct and 1 was placed distally and the cystic duct was ligated. Similarly, 2 clips were placed proximally on the cystic artery and 1 was placed distally and the cystic artery was ligated. Cautery was then used to dissect the gallbladder off of the gallbladder fossa. The gallbladder was then placed in an Endo Catch bag and removed from the abdomen from the infraumbilical incision site. []. Hemostasis was noted to be maintained. No bile leakage was noted. The infraumbilical fascial incision was closed under direct visualization using an 0 Vicryl suture and Barber-Jessie device. Pneumoperitoneum was released. All ports removed from the abdomen. All port sites were closed with 4-0 Vicryl subcuticular suture. Sterile dressing was applied. The patient was taken to postanesthesia care unit in stable condition. Sponge and instrument count correct x 2.
[2024-12-23 15:20] VITALS: TEMP 97
[2024-12-23 15:50] VITALS: RESP 16
[2024-12-23] MEDS: HYDROcodone/APAP 5-325MG 1 EACH TAB PO STA (16:23)
[2024-12-23] MEDS: LACTATED RINGERS 1,000 ML IV SCH (16:25)
[2024-12-23 16:39] VITALS: BP 110/81; PULSE 97
== END 2024-12-23 17:03 | disposition home or self-care (01) ==
LOC: OR 12:35
PROVIDERS: ATTEND Surgery
DX: K81.1 Chronic cholecystitis (principal); F41.9 Anxiety disorder, unspecified; F32.A Depression, unspecified; F20.9 Schizophrenia, unspecified; E28.2 Polycystic ovarian syndrome; Z79.899 Other long term (current) drug therapy; Z88.0 Allergy status to penicillin; Z88.8 Allergy status to other drugs, medicaments and biological substances
CPT/HCPCS: 47562; S2900; 81025; 85025; 88304